=== PATIENT | female | born 1955 | race Caucasian/White ===

== ENCOUNTER 2017-07-21 08:30 | Outpatient (RCR) | payer MEDICAID, SELFPAY ==
--- NOTE | 2017-07-21 10:46 | BH.SGPN ---
Service Group Progress Note - Session Psychotherapy Session #1 Date Open:: 18 - 8 group members Time Started:: 09:05 Time Stopped:: 10:10 Targeted Problem #:: 1 Type of Group:: Process Goal of Group:: The goal of today's group was to check-in with clients and review homework from previous group session. Client Response/Progress/Benefit:: client responded well to session, active participant. Client reports feeling jittery today due to worrying about her future. Client shared she has been struggling with anxiety on and off throughout her life, but recently has been highly anxious for the last 2-3 weeks. Client stated her anxiety was triggered by changes in her role at work that lead to more physically demanding tasks which client could not perform. Client reported I decided my health was more important than work, but now client is anxious about finding new employment. Client shared she was looking forward to joining the group as she enjoys the support and hopes to learn how to cope with lives challenges. Client appeared to benefit from connecting with peers and receiving supportive comments. Limited progress, first day of IOP. Client to continue IOP to prevent decompensation and promote mood stability. Eye Contact:: Good Motor Activity:: Appropriate Appearance:: Neat Speech:: Soft Mood:: Anxious Affect:: Constricted Thoughts:: Linear, No evidence of hallucinations/delusions noted Staff Interventions:: Therapist inquired about each group member?s previous night and current mood state. Therapist reviewed the group member?s homework from previous group session with the group, asking open ended questions to get more information.
--- NOTE | 2017-07-21 11:40 | BH.NA ---
Physical Data - Height/Weight Height: 1.57 m Weight:: 61.235 kg Weight in Pounds: 135.0 lbs Current Medication Compliance - Medication Compliance Do you take your medication as prescribed?: Yes Do you need assistance with taking medication?: No Have you had side effects from medication?: No Nutritional History - Appetite Nutritional Instructions:: If client shows signs of a swallowing problem, weight change of 10 pounds or more in the last month, or is on a diabetic diet, the physician will review and request a dietitian consult, as appropriate. All unintentional weight loss will be referred to the physician for decision on need for dietitian consult. Describe your appetite:: Good, Poor Have you noticed a change in your eating habits lately?: Yes - decreased w/ 5-10# wt loss Functional Assessment - Sleep Pattern Describe any problems with sleeping: Endorses difficulty staying asleep d/t anxiety, only sleep 4-5 hours nightly. - Activities Motor Activity:: Functional Sensory/Communication Assess - Hearing Problems Do you have any hearing problems?: Adequate - Communication Problems Do you have difficulty understanding what people are saying?: No Do you have trouble putting your thoughts into words or expressing what you want to say?: No Do people ever have trouble understanding what you say?: No What is your primary language?: Cymraes Learning Assessment - Learning Barriers Learning Barriers:: Ready to learn Medical Problems/History - Pain Assessment Do you have acute or chronic pain?: No - Female Reproductive Do you think you may be ?: No Number of pregnancies:: 0 Number of children:: 0 Substance Abuse - Substance Abuse Please describe substance abuse in the last 30 days:: Rare ETOH and caffiene use. Denies present or past tobacco and illicit substance use. Mental Status Summary - Mental Status Significant Findings/Observations on Appearance and Mood:: A&O x4, cooperative with interview, and makes normal eye contact. Nor Suicide Assessment - Suicidal Ideation Are you currently or have you been suicidal in the past?: Yes Suicidal Intentional Rating Scale (SIRS): Suicidal thoughts (past) - passive thoughts of w/o overt SI (no plan or intent) Physician Notification: If Active suicidal thoughts/Will not contract for safety is checked, contact physician and document in the Physician Notification section below. Assault History/Potential - History of Assault Do you have a history of assaulting someone?: No Physician Notification: If yes, notify physician and document notification date and time below. Past Psychiatric History - MH Treatment Hx Age of first mental health symptoms: 54 years old - approx 8 years age Fall Risk Assessment - Age Age: 60-70 - Mental Status Mental Status: Willing & able to ask for assistance when needed - Physical Status Physical Status: No problems - Impairments Impairments: None - Elimination Elimination: Continent AND independent - Gait or Balance Gait or Balance: Walks independently - Hx of Falls History of falls in the past 6 months: No known history - Medications/Substances Psychotropics:: Antidepressants Medications/substances used within the past 24 hours or ordered to administer: 1-2 of the medications/substances listed above - Total Score Total Points:: 2 RN Summary of Impressions - Impressions Recommendations: Include psychiatric and medical issues, treatment planning recommendations, and discharge planning needs. Impression: General Medical Conditions: N/A - Level of Care How do the client's current symptoms and functional deficits support need for this level of care?: Client describes worsening mental health symptoms over the past 3 weeks, which she associates with an increase in physical expectations at work. She is feeling overwhelmed by her anxiety, has had a decline in her ADL performance, and has been having passive thoughts of to escape. She specifically denies SI, plan, or intent to harm herself, but notes it would be easier for everyone if I didn't wake up one day. She has been having frequent panic attacks during which she feels tachycardic, disassociates from herself, and is unable to focus or concentrate. Shireen is able to identify her sister and some friends from [employer] as her support system, and is willing to reach out to them when feeling overwhelmed. IOP will promote gains and provide socialization while preventing further decompensation.
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
--- NOTE | 2017-07-21 14:20 | BH.DR.ITP ---
Initial Treatment Plan - Patient Information Visit Information: ADMISSION DATE: EXPECTED LOS: 4-6 weeks Diagnoses:: Generalized anxiety disorder. PTSD - Problems/Symptoms Problem #1:: Depression Symptom:: Sad mood, anhedonia, decreased energy, difficulty concentrating, biologic disruption of sleep and appetite Problem #2:: Anxiety Symptom:: Rumination, panic, intrusive traumatic memories
--- NOTE | 2017-07-25 11:06 | BH.SGPN ---
Service Group Progress Note - Session Psychotherapy Session #1 Date Open:: 07/25/17 Time Started:: 09:10 Time Stopped:: 10:05 Targeted Problem #:: 1 Type of Group:: Process Goal of Group:: The goal of today's group was to check-in with client's mood, stressors, and positives, review homework and introduce topic for the day. Client Response/Progress/Benefit:: Reported the weekend was tough for her because she is living alone and did not have anything due over the long weekend. Client shared she is having a hard time adjusting to not having a job right now since having to quit due to physical limitations. Client reported she is not feeling ready to start applying and interviewing for a new job until she feels more mentally healthy. Client shared she did spend some time with a friend on Monday and got outside throughout the weekend which was positive. Client identified not having a structure or routine as one of the biggest problems currently becuase that is what work provided for her. Client seemed to benefit from support from peers. Client to continue IOP to prevent decompensation and decrease depressive and isolation. Eye Contact:: Fair Motor Activity:: Appropriate Appearance:: Casual Speech:: Appropriate Mood:: Anxious, Depressed Affect:: Constricted Thoughts:: Linear, Logical, No evidence of hallucinations/delusions noted Staff Interventions:: Therapist used open-ended questions to elicit information about client's current stressors and mood state. Therapist was supportive by using active listening and reflection.
--- NOTE | 2017-07-25 12:15 | BH.MTP_ITS ---
Master Treatment Plan - Patient Information Program Physician:: Juliet Pineda Primary Therapist:: Yvette Aguilar - Psychiatric Diagnoses Psychiatric Diagnoses:: generalized anxiety disorder; PTSD; Depressive disorder unspecified Diagnosis Code(s):: F41.1 - Estimated LOS Estimated LOS (in weeks):: 6 Problem/Goal #1 - Problem/Goal #1 Stated Goal:: Client will reduce depressive symptoms and anhedonia while increasing her social supports and energy. Description of Barriers: Client identifies family as a support, but also a barrier as it reminds client of her loneliness. Client reports wanting to return to work, but currently being unable to due to anxiety. Client reports high expectation of herself which could serve as a positive, but may also create unrealistic expectations for progress. Client could benefit from psychoeducation on the purpose of emotions as client reports struggling with accepting negative emotions, and often judges herself for feeling anything but happy. Functional Impact: At admission, client reported anxiety and depression since 2010 and has had 3-4 intermittent episodes of anxiety and depression since then. Client?s anxiety recently became worse 3 weeks ago due to loneliness and recently quitting her job. Client endorsed a depressed mood, anhedonia, decreased energy, and difficulty concentrating. Client also reported decreased appetite with a 5-pound weight loss in the past 3 weeks. Client states having interrupted sleep, averaging 5 hours a night. Client reported ruminative anxiety about multiple issues and experiences somatic symptoms such as heart palpitation, shortness of breath, and dissociative symptoms. Client shared feeling anxious every day for most of the day, especially in the mornings. At admission client reported her symptoms are interfering with her ability to function socially and professionally. Goal Relevant Strengths/Supports: Client is kind, insightful, and hard working. Client reports having strong arline which client shares helps her overcome challenging times in life. Client is engaged in treatment and appears motivated to incorporate coping skills learned in group. Client shared belief she is persistent and hopeful that things will get better for her. - Objectives Objective #1 Stated Objective: Client will identify and replace 3-4 negative self-talk messages that reinforce depressive symptoms. Interventions: Therapist will help client identify distorted, negative beliefs about self and world and replace those messages with positive, affirmative messages. Therapist will provide psychoeducation and help client increase awareness of warning signs and triggers. Discharge Criteria: Client will have achieved this goal when can identify at least 3 negative self-talk messages and replace those messages with positive, affirmative messages. Target Date: 09/01/17 Review Date: 08/21/17 Status: open Objective #2 Stated Objective: Client will increase social activity to at least one additional activity weekly to improve mood and promote sense of accomplishment. Interventions: Therapist will assist client in identifying social activities of interest, supports, and tasks that promote a sense of accomplishment. Therapist will help client identify the benefits of engaging in these activities and help client create a daily routine. Discharge Criteria: Client will have achieved this objective when can report attending at least one extra social activity peer week. Target Date: 09/01/17 Review Date: 08/21/17 Status: open Problem/Goal #2 - Problem/Goal #2 Stated Goal:: Reduce overall frequency, intensity, and duration of the anxiety so that daily functioning is not impaired. Description of Barriers: Client identifies family as a support, but also a barrier as it reminds client of her loneliness. Client reports wanting to return to work, but currently being unable to due to anxiety. Client reports high expectation of herself which could serve as a positive, but may also create unrealistic expectations for progress. Client could benefit from psychoeducation on the purpose of emotions as client reports struggling with accepting negative emotions, and often judges herself for feeling anything but happy. Functional Impact: At admission, client reported anxiety and depression since 2010 and has had 3-4 intermittent episodes of anxiety and depression since then. Client?s anxiety recently became worse 3 weeks ago due to loneliness and recently quitting her job. Client endorsed a depressed mood, anhedonia, decreased energy, and difficulty concentrating. Client also reported decreased appetite with a 5-pound weight loss in the past 3 weeks. Client states having interrupted sleep, averaging 5 hours a night. Client reported ruminative anxiety about multiple issues and experiences somatic symptoms such as heart palpitation, shortness of breath, and dissociative symptoms. Client shared feeling anxious every day for most of the day, especially in the mornings. At admission client reported her symptoms are interfering with her ability to function socially and professionally. Goal Relevant Strengths/Supports: Client is kind, insightful, and hard working. Client reports having strong arline which client shares helps her overcome challenging times in life. Client is engaged in treatment and appears motivated to incorporate coping skills learned in group. Client shared belief she is persistent and hopeful that things will get better for her. - Objectives Objective #1 Stated Objective: Client will identify 2-3 anxiety triggers and warning signs and 2 coping skills to use when feeling anxious. Interventions: Therapist will assist client in exploring what triggers anxiety and the various areas anxiety impacts, such as cognitive, physical, behavioral, and emotional. Therapist will teach client coping strategies to effectively manage anxiety symptoms. Discharge Criteria: Client will have met this goal when can identify at least 2 triggers to anxiety and verbalize two healthy ways to cope with feelings of anxiety. Target Date: 09/01/17 Review Date: 08/21/17 Status: open Objective #2 Stated Objective: Client will learn and implement 2-3 calming skills to reduce overall anxiety, panic, and ruminations. Interventions: Therapist will teach client calming/relaxation skills and assign client homework which practices relaxation skills daily. Therapist will utilize various mindfulness techniques and also help client recognize early warning signs to prevent panic and manage anxiety. Discharge Criteria: Client will have achieved this goal when can verbalize at least 2 calming skills and report implementation those skills. Target Date: 09/01/17 Review Date: 08/21/17 Status: open
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
--- NOTE | 2017-07-25 14:43 | BH.MDN ---
Multi-Disciplinary Note - Note 45-min Individual Time Started:: 12:30 Date: 07/25/17 Purpose of session/treatment goals addressed:: The purpose of this session was to gather information on client's current symptoms, stressors, and supports. Another goal was to identify treatment goals, learn calming coping skills, and establish a daily routine for client. Eye Contact:: Good Motor Activity:: Appropriate Appearance:: Neat Speech:: Appropriate Mood:: Euthymic Affect:: Congruent Thoughts:: Linear, Logical, No evidence of hallucinations/delusions noted Staff Interventions:: Therapist used open-ended questions to gather information on client's current symptoms, stressors, supports, and treatment goals. Therapist explored client's interests, daily tasks, supports, and hobbies to help client create a daily routine that will promote client's emotional well-being. Therapist taught client deep breathing strategies and grounding techniques to reduce anxiety. Therapist explored client's treatment goals and used strengths perspective to empower client. Client Response:: Client responded well to session, open to meeting with therapist. Client shared she would like to work on coping with life challenges, loneliness, anxiety, and finding employment. Client shared she has been experiencing panic attacks and anxiety, triggered by client recently quitting her job, which has been impacting client's emotional well-being and ability to go on job interviews. Client stated she also struggles with loneliness as client has supports in her life, but they all have families to go home to. Client was receptive to establishing a daily schedule, reporting it would reduce depression and anxiety. Client identified interests she would like to get back into such as gardening, weeding flower beds, scrapbooking, and volunteering. Client reported she would like to volunteer at a food pantry and was open to considering food pantries in [facility]. Client and therapist established a schedule for this week that included a combination of chores, pleasurable activities, and engagement with supports. Client was receptive to learning calming coping skills for anxiety, as client shared her anxiety keeps her from doing things and that she often experiences somatic symptoms like racing heartrate and shortness of breath. Client and therapist reviewed various grounding and deep breathing strategies. Client stated she enjoyed figure-eight breathing and the 5-senses. Client and therapist discussed the benefits of scheduling a time to practice healthy coping skills as well. Client reports plan to use her daily routine and practice at least one healthy coping skill a day. Risks/Concerns:: Client denies suicidal ideation, plan, and intent as of 07/25/17. Client reports looking forward to going to the library and meeting with her nondenominational group this week which demonstrates future orientation. Progress Toward Goals/Plan:: Client showing limited progress as today was her second day in IOP. However, client appears motivated in her treatment process as shown by her willingness to implement a daily routine and try coping skills. Client to continue IOP to promote mood stability and prevent decompensation. Time Stopped:: 13:17
--- NOTE | 2017-07-25 15:16 | BH.MDN_ITS ---
Multi-Disciplinary Note - Note 45-min Individual Time Started:: 12:30 Date: 07/25/17 Purpose of session/treatment goals addressed:: The purpose of this session was to gather information on client's current symptoms, stressors, and supports. Another goal was to identify treatment goals, learn calming coping skills, and establish a daily routine for client. Eye Contact:: Good Motor Activity:: Appropriate Appearance:: Neat Speech:: Appropriate Mood:: Euthymic Affect:: Congruent Thoughts:: Linear, Logical, No evidence of hallucinations/delusions noted Staff Interventions:: Therapist used open-ended questions to gather information on client's current symptoms, stressors, supports, and treatment goals. Therapist explored client's interests, daily tasks, supports, and hobbies to help client create a daily routine that will promote client's emotional well- being. Therapist taught client deep breathing strategies and grounding techniques to reduce anxiety. Therapist explored client's treatment goals and used strengths perspective to empower client. Client Response:: Client responded well to session, open to meeting with therapist. Client shared she would like to work on coping with life challenges, loneliness, anxiety, and finding employment. Client shared she has been experiencing panic attacks and anxiety, triggered by client recently quitting her job, which has been impacting client's emotional well-being and ability to go on job interviews. Client stated she also struggles with loneliness as client has supports in her life, but they all have families to go home to. Client was receptive to establishing a daily schedule, reporting it would reduce depression and anxiety. Client identified interests she would like to get back into such as gardening, weeding flower beds, scrapbooking, and volunteering. Client reported she would like to volunteer at a food pantry and was open to considering food pantries in [facility]. Client and therapist established a schedule for this week that included a combination of chores, pleasurable activities, and engagement with supports. Client was receptive to learning calming coping skills for anxiety, as client shared her anxiety keeps her from doing things and that she often experiences somatic symptoms like racing heartrate and shortness of breath. Client and therapist reviewed various grounding and deep breathing strategies. Client stated she enjoyed figure-eight breathing and the 5-senses. Client and therapist discussed the benefits of scheduling a time to practice healthy coping skills as well. Client reports plan to use her daily routine and practice at least one healthy coping skill a day. Risks/Concerns:: Client denies suicidal ideation, plan, and intent as of . Client reports looking forward to going to the library and meeting with her [employer] group this week which demonstrates future orientation. Progress Toward Goals/Plan:: Client showing limited progress as today was her second day in IOP. However, client appears motivated in her treatment process as shown by her willingness to implement a daily routine and try coping skills. Client to continue IOP to promote mood stability and prevent decompensation. Time Stopped:: 13:17
--- NOTE | 2017-07-25 16:07 | BH.SGPN_ITS ---
Service Group Progress Note - Session Psychotherapy Session #2 Date Open:: 07/25/17 Time Started:: 10:19 Time Stopped:: 11:14 Targeted Problem #:: 1 Type of Group:: Illness Management - 6 participants Goal of Group:: To increase understanding of a crisis and improve client?s awareness of personal warning signs before crisis. Client Response/Progress/Benefit:: Client responded well to session and actively participated in both the discussion and activity portions. Client discussed with the group what crisis means and ways in which small things can contribute to crisis escalation. Client shared that she often tries to run from crisis as she gets afraid of dealing with the aftermath. Client benefitted from processing potential impacts crisis can have on mental health and resilience. She shared with the group what crisis looks like to her. She discussed having a serious of highs and lows rather than one big high or low. CLient indicated when I don't pay attention the the warning signs everything just gets much worse. Client recommended continued IOP to further repetiore of healthy coping strategies and stress management techniques. Eye Contact:: Good Motor Activity:: Appropriate Appearance:: Casual Speech:: Appropriate Mood:: Euthymic, Anxious Affect:: Congruent Thoughts:: Linear, Logical, No evidence of hallucinations/delusions noted Staff Interventions:: Therapist facilitated group discussion about defining a crisis and specifying various events that are considered a crisis. Therapist led the group in discussion about identifying personal warning signs before a crisis and importance of being aware of those signs. Therapist provided support by using active listening and providing feedback. Psychotherapy Session #3 Date Open:: 07/25/17 Time Started:: 11:21 Time Stopped:: 12:18 Targeted Problem #:: 1 Type of Group:: Functional Skills Development - 6 participants Goal of Group:: To increase awareness of warning signs before a crisis and identify interventions/coping strategies that would help clients proactively manage potential crises. Client Response/Progress/Benefit:: Client again did well to remain engaged throughout. She connected with the discussion reviewing the importance of recognizing crisis warning signs and identified isolation and decreased appetite as two of her personal warning signs for crisis. CLient benefitted from the crisis kit activity in which clients created asmall bag containing reminders of healthy skills they have found effective in the past or would like to try, as well as encouraging words. CLient indicated that being creative and spending time with her niece are to things that tend to help. Recommended continued IOP to increase use of healthy skills identified and ability to challenge unhelpful thinking patterns. Eye Contact:: Good Motor Activity:: Appropriate Appearance:: Casual Speech:: Appropriate Mood:: Euthymic, Anxious Affect:: Congruent Thoughts:: Linear, Logical, No evidence of hallucinations/delusions noted Staff Interventions:: Therapist led the group in discussion about identifying personal warning signs before a crisis and importance of being aware of those signs. Therapist provided the group with various types of items and asked each group member to select five items that represent something that would be helpful in managing their warning signs of a crisis. Therapist facilitated group processing of the crisis emergency kits each group member created. Therapist used open-ended questions to encourage elaboration of each item chosen for their kit. Therapist helped clients connect how the crisis emergency kit could help be a crisis prevention tool.
--- NOTE | 2017-07-26 15:04 | BH.SGPN ---
Service Group Progress Note - Session Psychotherapy Session #2 Date Open:: 07/26/17 - 10 group members Time Started:: 10:20 Time Stopped:: 11:15 Targeted Problem #:: 1 Type of Group:: Illness Management Goal of Group:: To increase understanding of resilience and identify the factors that contribute to building resilience. Client Response/Progress/Benefit:: client responded well to session, providing good insight to discussion. Client connected with the quote sharing, if you are flexible it makes the hard times easier to get over. Client shared resilience is bouncing back from challenges, even when life is chaos. Client helped the group identify factors that contribute to building resilience such as hope and optimism and moving towards goals. Client shared acceptance is also important for increasing resilience and that client often uses the serenity prayer as a reminder of what is in client's control. Client appeared to benefit from increasing her understanding of resilience. Progress noted in client's improved outlook use of coping skills, but can continue to benefit from IOP to reduce anxiety. Eye Contact:: Good Motor Activity:: Appropriate Appearance:: Neat Speech:: Pressured Mood:: Anxious Affect:: Congruent Thoughts:: Linear, Logical, No evidence of hallucinations/delusions noted Staff Interventions:: Therapist led group in an activity that would induce a chaotic environment and used the activity as a tool in discussing the various stressors people are faced with each day. Therapist facilitated group discussion about resilience and explained the factors of building resilience. Therapist led discussion about factors that contribute to resilience. Therapist provided support by using active listening and providing feedback. Psychotherapy Session #3 Date Open:: 07/26/17 - 9 group members Time Started:: 11:25 Time Stopped:: 12:15 Targeted Problem #:: 1 Type of Group:: Functional Skills Development Goal of Group:: To rehearse resilient factors and identify ways to maintain resilience despite hardships and stressors. Client Response/Progress/Benefit:: Client responded well to session, providing supportive statements to peers. Client identified personal resilience traits such being hopeful, having perseverance, and remind herself I'll get through this. Client shared these are good reminders because when client is having a down day or feeling highly anxious she can look at them and feel more confident. Client appeared to benefit from increasing awareness of her personal resilience factors. Client to continue IOP to promote mood stability. Eye Contact:: Good Motor Activity:: Appropriate Appearance:: Neat Speech:: Appropriate Mood:: Euthymic Affect:: Congruent Thoughts:: Linear, Logical Staff Interventions:: Therapist led group in an activity in which group members were challenged to stay resilient despite various stressors and hardships added to activity. Therapist provided each group member with a stress ball and used stress ball as a tool to discuss factors of resilient personality. Therapist provided group members with a handout about the building blocks of resilience. Therapist provided support by using reflective listening.
--- NOTE | 2017-07-26 15:32 | BH.SGPN ---
Service Group Progress Note - Session Psychotherapy Session #1 Date Open:: 07/26/17 Time Started:: 09:10 Time Stopped:: 10:10 Targeted Problem #:: 1 Type of Group:: Process - 10 group members Goal of Group:: The goal of today's group was to check-in with client's mood, stressors, and positives, review homework and introduce topic for the day. Client Response/Progress/Benefit:: Client attentively listened to others, elicited thoughts from peers, and openly expressed and thoughts and emotions. Client reported she experiences different moods throughout the day. client shared for a little bit she will be feeling okay then be depressed or anxious, etc. Client expressed frustration with not seeing progress, reporting she thought she'd be better by now. Client continues to have unrealistic expectations of being better after a short time of starting to implement new skills. Client did seem to benefit from connecting with others on their experience of roller coaster moods. Eye Contact:: Fair Motor Activity:: Restless Appearance:: Casual Speech:: Appropriate Mood:: Anxious, Depressed Affect:: Constricted Thoughts:: Linear, No evidence of hallucinations/delusions noted Staff Interventions:: Therapist used open-ended questions to elicit information about client's current stressors and mood state. Therapist was supportive by using active listening and reflection.
--- NOTE | 2017-07-27 10:43 | BH.SGPN_ITS ---
Service Group Progress Note - Session Psychotherapy Session #1 Date Open:: 18 - 6 group members Time Started:: 09:05 Time Stopped:: 10:20 Targeted Problem #:: 1 Type of Group:: Process Goal of Group:: The goal of today's group was to check-in with client's mood, stressors, and positives, and introduce topic for the day. Client Response/Progress/Benefit:: Client responded well to session, engaging with others and providing insight. Client reports feeling hopeful today as she has started noticing small improvements in her outlook and mood. Client shared mornings continue to be hardest for her, but she has been using the phrase I will be okay to remind herself that the difficult times, anxiety, and depression do not last forever. Client stated she continues to have ups and downs, however, they do not last as long due to client using positive self- talk and other coping skills. Client reported she wants to get back to work and at times feels overwhelmed, but she has been telling herself one day at a time. Client appeared to benefit from reflecting on the positive ways she is coping with her ups and downs. Progress noted as shown by client's ability to challenge negative thoughts and unrealistic expectations. Client can continue to benefit from improving social support and increasing mood stability. Eye Contact:: Good Motor Activity:: Appropriate Appearance:: Neat Speech:: Appropriate Mood:: Euthymic Affect:: Congruent Thoughts:: Linear, Logical, No evidence of hallucinations/delusions noted Staff Interventions:: Therapist used open-ended questions to elicit information about client's current stressors and mood state. Therapist was supportive by using active listening and reflection.
--- NOTE | 2017-07-27 14:13 | BH.SGPN_ITS ---
Service Group Progress Note - Session Psychotherapy Session #2 Date Open:: 07/27/17 Time Started:: 10:24 Time Stopped:: 11:14 Targeted Problem #:: 1 Type of Group:: Illness Management - 7 participants Goal of Group:: To increase understanding of fear and explore the negative impact fear of failure can have on mental health and decision making. Client Response/Progress/Benefit:: Client responded well to session and willing to engage throughout. She appeared nervous at first and took on a mostly passive, observant role during discussing covering failure and the impact our outlook has on mental health. Client benefitted from the activity portion in which group members were challenged to complete a gridlock activity allowing for participants to encounter various potential failures. Client was able to work with the group to discover various strategies for preventing and managing failure. She displayed progress in her abilit to open up and engage wih the group. CLient recommended continued IOP to maintain stability and work on developing healthy skills for managing symptoms of depression. Eye Contact:: Good Motor Activity:: Appropriate Appearance:: Casual Speech:: Appropriate Mood:: Anxious, Dysthymic Affect:: Congruent Thoughts:: Linear, Logical, No evidence of hallucinations/delusions noted Staff Interventions:: Therapist facilitated discussion about fear and impact fear of failure can have. Therapist led group in an experiential activity in which client?s would fail numerous times throughout, but were given the opportunity to try again. Therapist led the processing of the activity and assisted clients with connecting how fear of failure impacted their decision making during the activity. Psychotherapy Session #3 Date Open:: 07/27/17 Time Started:: 11:21 Time Stopped:: 12:17 Targeted Problem #:: 1 Type of Group:: Functional Skills Development - 7 participants Goal of Group:: To identify the impact fear of failure has had on the group members lives and identify strategies to overcome fear of failure. Client Response/Progress/Benefit:: Client displayed increased participation and engagement in group compared to previous session. She was an actively engaged participant in the activity portion and did well to process this with the group. CLient identified ways in which the activity can be associated to managing fear of failure in personal life. CLient benefitted from brainstorming ideas for coping with fear of failure such as beaking things down into smaller steps. CLient displayed progress in her ability to relate treament concepts to daily life. CLient continues to struggle with patience regarding treatment progress. Recommended continued IOP to maintain stabilty and increase use of healthy skills for managing symptoms of depression. Eye Contact:: Good Motor Activity:: Appropriate Appearance:: Casual Speech:: Appropriate Mood:: Anxious, Dysthymic Affect:: Congruent Thoughts:: Linear, Logical, No evidence of hallucinations/delusions noted Staff Interventions:: Therapist provided each group member with a worksheet to complete that asked questions about their experiences with fear of failure. Therapist led the processing of the worksheet, helping client?s connect how fear of failure has impacted them. Therapist provided support by using active listening and providing feedback.
== END 2017-07-27 23:59 ==
LOC: BHIOP 08:30
PROVIDERS: Visit Provider Psychiatry & Neurology Psychiatry
DX: F41.1 Generalized anxiety disorder (principal); F43.10 Post-traumatic stress disorder, unspecified; F32.9 Major depressive disorder, single episode, unspecified; Z79.899 Other long term (current) drug therapy
CPT/HCPCS: 99204; H0035; H2012; H2020; T1002; 90834

== ENCOUNTER → 2017-07-21 13:38 | Outpatient (CLI) | payer MEDICAID, SELFPAY ==
[2017-07-21 16:07] LABS: Thyroid Stim Hormone (TSH) 1.06 uIU/mL (0.358-3.74); Vitamin D,25 Hydroxy 36.6 ng/mL (29.95-100.01)
== END ==
PROVIDERS: PCP Family Medicine; Visit Provider Psychiatry & Neurology Psychiatry
DX: E55.9 Vitamin D deficiency, unspecified (principal); Z79.899 Other long term (current) drug therapy
CPT/HCPCS: 36415; 82306; 84443; 99204; H2012; T1002

== ENCOUNTER 2017-07-28 08:49 | Outpatient (RCR) | payer MEDICAID, SELFPAY ==
--- NOTE | 2017-07-28 14:28 | BH.SGPN_ITS ---
Service Group Progress Note - Session Psychotherapy Session #2 Date Open:: 07/28/17 - 8 group members Time Started:: 10:10 Time Stopped:: 11:00 Targeted Problem #:: 1 Type of Group:: Illness Management Goal of Group:: To increase understanding of what stress is, identify current life stressors, and connect impact stressors have on mental health. Client Response/Progress/Benefit:: Client responded well to session, active participant. Client connected with quote sharing how we think about something makes it better or worse. Client shared stress impacts the body emotionally, physically, and behaviorally. Client when she experiences stress she feels butterflies, confused, and overwhelmed. Client identified her current stressors as not having a job and having too much free time. Client stated her stress jar is not yet overflowing, but when it does client becomes overwhelmed, has panic attacks, and feels like she is losing control. Client appeared to benefit from increasing awareness of how stress impacts her mental wellness. Progress noted in client's improved insight and generalization of coping skills, but can continue to benefit from reducing anxiety and mental health education Eye Contact:: Good Motor Activity:: Appropriate Appearance:: Neat Speech:: Appropriate Mood:: Depressed Affect:: Constricted Thoughts:: Linear, Logical, No evidence of hallucinations/delusions noted Staff Interventions:: Therapist facilitated discussion about stress. Therapist facilitated an activity in which group members were asked to identify various stressors they have in their life currently. Therapist instructed group members to indicate if certain stressors were larger than others. Therapist led processing of each member?s stress jar and helped them connect impact the stress has on their mental health. Psychotherapy Session #3 Date Open:: 07/28/17 - 7 group members Time Started:: 11:10 Time Stopped:: 12:00 Targeted Problem #:: 1 Type of Group:: Functional Skills Development Goal of Group:: To identify what stressors clients have control over and what stressors have no control over. Another goal was to increase repertoire of healthy strategies to help manage stress. Client Response/Progress/Benefit:: Client responded well to session, engaging well with peers. Client stated the activity helped her recognize the importance of communication and using supports when working to reduce stress. Client shared managing her free time is in her control as client can find ways to establish a routine. Client helped the group identify strategies to reduce stress such as reminding herself of progress, taking one stressor on at a time, and reaching out to supports. Client appeared to benefit from identifying strategies to reduce stress. Client to continue IOP to reduce anxiety and improve functioning. Eye Contact:: Good Motor Activity:: Appropriate Appearance:: Neat Speech:: Appropriate Mood:: Euthymic Affect:: Full Thoughts:: Linear, Logical, No evidence of hallucinations/delusions noted Staff Interventions:: Therapist facilitated discussion about control versus no control and helped group members connect the concept to stressors. Therapist led discussion about importance of putting forth more energy on those stressors they can control. Therapist led group activity that provided participants opportunity to utilize stress management strategies in the moment. Therapist facilitated brainstorming of strategies to help manage stress level. Therapist provided support by using active listening and providing feedback.
--- NOTE | 2017-07-28 15:32 | BH.SGPN ---
Service Group Progress Note - Session Psychotherapy Session #1 Date Open:: 07/28/17 Time Started:: 09:08 Time Stopped:: 09:59 Targeted Problem #:: 1 Type of Group:: Process Goal of Group:: The goal of today's group was to check-in with client's mood, stressors, and positives, review homework and introduce topic for the day. Client Response/Progress/Benefit:: Client reported she had a difficult time this morning increasing anxiety when she woke up. Client reported feeling disappointed because she thought she have more progress with decreased symptomology by this point. Client reported she felt her morning routine and took a walk this morning but did not notice a significant decrease in her anxiety after. Client seemed benefit from supportive comments made by peers as well as expressing thoughts and emotions. Client's high expectations of self could become a barrier to treatment progress because she expects to be better in a very short amount of time. continuing IOP necessary to prevent decompensation, decreasing anxiety and stabilize mood. Eye Contact:: Fair Motor Activity:: Restless Appearance:: Casual Speech:: Appropriate Mood:: Anxious Affect:: Constricted Thoughts:: Linear, Logical, No evidence of hallucinations/delusions noted Staff Interventions:: Therapist used open-ended questions to elicit information about client's current stressors and mood state. Therapist was supportive by using active listening and reflection.
--- NOTE | 2017-07-31 15:10 | BH.SGPN ---
Service Group Progress Note - Session Psychotherapy Session #1 Date Open:: 07/31/17 Time Started:: 09:07 Time Stopped:: 10:20 Targeted Problem #:: 1 Type of Group:: Process - 9 participants Goal of Group:: The goal of today's group was to check-in with clients and review homework from previous group session. Client Response/Progress/Benefit:: Client receptive to participating in group and openly discussed current thoughts, feelings, and stressors. She provided support and encouragement to fellow participants and appeared t benefit from having a shared space to process with others struggling with similar issues. Client expressed that although she is continuing to struggle with managing some of her depressive symptoms at times, she was able to make some progress over the weekend which has resulted in some increased levels of optimism. Client shared taking the step to talk to someone about volunteering with a local organization in her hometown called [employer] and [employer]. She reflected that although she had been nervous about doing so, the conversation went much more smoothly than she had expected, Client discussed that breaking things down into small goals has been helpful for dealing with feeling overwhelmed. Client benefitted from reflecting upon areas of achievement and is making progress in her ability to combat negative thinking. Recommended continued IOP to further improve use of skills learned as well as maintain stability. Eye Contact:: Good Motor Activity:: Appropriate Appearance:: Casual Speech:: Appropriate Mood:: Euthymic Affect:: Congruent Thoughts:: Linear, No evidence of hallucinations/delusions noted Staff Interventions:: Therapist facilitated the group session by asking open ended questions that encouraged group members to discuss their weekend and current mood state. Assisted group members in the review of their homework from previous group session.
--- NOTE | 2017-07-31 15:29 | BH.SGPN ---
Service Group Progress Note - Session Psychotherapy Session #2 Date Open:: 07/31/17 Time Started:: 10:25 Time Stopped:: 11:15 Targeted Problem #:: 1 Type of Group:: Illness Management Goal of Group:: To increase understanding of pitfalls and impact can have on mental health. Client Response/Progress/Benefit:: Client active participant, listened attentively to others and contributed to discussion. Client shared she is starting to recognize it takes time for things to get better and she can see progress in herself, which she wasnt able to see last week. Client worked cooperatively with peers during team challenge activity, identified importance of communication as a skill in helping one avoid falling in personal pitfalls. Client seemed to benefit from increasing understanding of how personal pitfalls can impact progress. Eye Contact:: Fair Motor Activity:: Appropriate Appearance:: Casual Speech:: Appropriate Mood:: Dysthymic Affect:: Constricted Thoughts:: Linear, Logical, No evidence of hallucinations/delusions noted Staff Interventions:: Therapist facilitated discussion about pitfalls and assisted group in identifying common pitfalls that can set you back. Therapist led group in an activity to help group understand impact pitfalls can have on oneself and identify strategies that could help you get back on the right path. Therapist provided support by using active listening and providing feedback. Psychotherapy Session #3 Date Open:: 07/31/17 Time Started:: 11:25 Time Stopped:: 12:15 Targeted Problem #:: 1 Type of Group:: Functional Skills Development Goal of Group:: To identify personal pitfalls and what keeps them stuck from moving forward. Client Response/Progress/Benefit:: Client listened attentively to others and shared her thoughts and ideas with group. Client reported she had a hard time identifying her personal pitfalls because she doesnt like to think about the negatives. Client did identify comparting self to others and not seeing progress as two of her biggest personal pitfalls. Client reported she is willing to recognize she has made progress by thinking back to where she was when she started IOP. Client seemed to benefit from identifying a small goal for the day. Client progress could be hindered if client continues to avoid identifying and facing the issues that could be keeping her stuck. Eye Contact:: Good Motor Activity:: Appropriate Appearance:: Casual Speech:: Appropriate Mood:: Dysthymic Affect:: Constricted Thoughts:: Linear, Logical, No evidence of hallucinations/delusions noted Staff Interventions:: Therapist facilitated activity in which group members were given the task to identify personal pitfalls and what keeps them stuck from moving past the pitfall. Therapist provided group members with the homework assignment of identifying strategies that can help them overcome pitfalls.
--- NOTE | 2017-07-31 16:00 | BH.MDN ---
Multi-Disciplinary Note - Note 45-min Individual Time Started:: 12:40 Date: 07/31/17 Purpose of session/treatment goals addressed:: The purpose of this session was to address client's current symptoms, stressors, and expectations for progress. Another goal was to challenge cognitive distortions, establish realistic expectations and set weekly goals. Eye Contact:: Good Motor Activity:: Appropriate Appearance:: Neat Speech:: Appropriate Mood:: Euthymic Affect:: Congruent Thoughts:: Linear, No evidence of hallucinations/delusions noted Staff Interventions:: Therapist used open-ended questions to explore client's current stressors, symptoms, and expectations for treatment. Therapist helped client challenge unrealistic expectations and cognitive distortions that keep client from acknowledging progress. Therapist processed negative maintenance cycles with client and taught client ways to break the cycle. Therapist helped client establish weekly expectations and praised client on her weekend accomplishments. Client Response:: Client responded well to session, engaged throughout. Client reported she continues to struggle with ups and downs throughout the day, and recognizes that she may be too hard on herself. Client stated she has negative thoughts of I should be better by now which with therapist elicitation, recognizes as unrealistic. Client and therapist processed the cognitive distortions and how shoulding can keep client stuck in a negative maintenance cycle, lead to unhealthy self-comparison, and prevent client from seeing the progress. Client reported progress from the weekend sharing she faced her fears and went into her previous place of employment and asked to be a volunteer. Client also reached out to support and challenged negative thoughts. Client reported I felt really good after facing her. fears and challenging her anxious thoughts. Client stated she had negative, what if thoughts, but challenged them by saying it wouldn't hurt to try. Client identified her expectations for treatment and shared she recognizes she has been thinking unrealistically about how quickly anxiety will reduce. Client was receptive to establishing weekly expectations and reported this week she wants to challenge thoughts more, acknowledge small progress, and reduce anxiety a little bit. Risks/Concerns:: Client denies suicidal ideation, plan, and intent as of 07/31/17. Client reports plans to start volunteering which demonstrates future orientation. Progress Toward Goals/Plan:: Client making progress towards treatment goals as shown by her report of improved mood and plans to volunteer. Client continues to report highs and lows most days, with symptoms worse in the mornings. Client to continue IOP to prevent decompensation and reduce anxiety. Time Stopped:: 13:30
--- NOTE | 2017-08-01 16:03 | BH.SGPN ---
Service Group Progress Note - Session Psychotherapy Session #1 Date Open:: 08/01/17 Time Started:: 09:07 Time Stopped:: 10:12 Targeted Problem #:: 1 Type of Group:: Process - 4 participants Goal of Group:: The goal of today's group was to check-in with clients and review homework from previous group session. Client Response/Progress/Benefit:: Client responded well to session and was a positive participant throughout. She was able to actively provide input to the group and encourage others as they discussed current frustrations or difficulties. Client discussed that not much has changed since yesterday but that she continues to struggle with remaining patient regarding wanting her mental health to back to where it used to be sooner. Client shared feeling most frustrated that she continues to experience ups and downs throughout the day,. She appeared to benefit from discussing with the group ways she is trying to challenge her negative thoughts during the down times as well as how she may benefit from beginning to track daily progress so she can she small ways in which her treatment is helping with managing mental health symptoms. Client showing progress in her ability to apply healthy skills in the moment but would benefit from continued IOP to increase consistency of skill application and prevent decompensation. Eye Contact:: Good Motor Activity:: Appropriate Appearance:: Casual Speech:: Appropriate Mood:: Depressed Affect:: Congruent Thoughts:: Linear, Logical, No evidence of hallucinations/delusions noted Staff Interventions:: Therapist facilitated the group session by asking open ended questions that encouraged group members to discuss their weekend and current mood state. Assisted group members in the review of their homework from previous group session.
--- NOTE | 2017-08-02 10:22 | BH.SGPN ---
Service Group Progress Note - Session Psychotherapy Session #1 Date Open:: 08/02/17 Time Started:: 09:10 Time Stopped:: 10:05 Type of Group:: Process - 7 group members Goal of Group:: The goal of today's group was to check-in with client's mood, stressors, and positives, and review homework. Client Response/Progress/Benefit:: Active participant in group discussion. Emotion for today is optimistic. Shared that she is having a hard time being patient with her mental health progress. Understands that it will take some time to see significant improvement, however is able to see small progress. States Im getting better reporting that her MH symptoms of anxiety, depression, and dissociation are not as severe. Reports being more hopeful and motivated in the AM. Discussed that during group yesterday she had a goal to visit with friends and family more. Reports that she actually stopped over her nieces house and ended up spending the afternoon with her. Able to see benefits of stepping outside of comfort zone. Progress noted AEB by pt report. Will continue in IOP to prevent decompensation, maintain gains, and increase daily functioning. Noted decrease in daily anxiety however continues to report depressive symptoms. Eye Contact:: Good Motor Activity:: Restless Appearance:: Disheveled Speech:: Appropriate Mood:: Anxious, Depressed Affect:: Congruent Thoughts:: Linear, Logical, No evidence of hallucinations/delusions noted Staff Interventions:: Therapist used open-ended questions to elicit information about client's current stressors and mood state. Therapist was supportive by using active listening and reflection
--- NOTE | 2017-08-02 17:20 | BH.SGPN ---
Service Group Progress Note - Session Psychotherapy Session #2 Date Open:: 08/02/17 group members Time Started:: 10:17 Time Stopped:: 11:12 Targeted Problem #:: 1 Type of Group:: Illness Management Goal of Group:: To identify within self what is keeping client trapped from achieving better quality of life. Client Response/Progress/Benefit:: Client responded well to session, participating in discussion. Client connected with the quote sharing [employer] built [employer] in the past. Client stated anxiety and depression can keep a person stuck. Client able to connect how one's negative thoughts can make her feel trapped as well. Client identified negative thoughts keeping her trapped as I'm not good enough and what if something bad happens. Client shared she does not like thinking about her negative thoughts, but with therapist elicitation, client realized having awareness of cognitive distortions helps client be proactive and not fall into thought traps. Client appeared to benefit from reflecting on thoughts keeping client from achieving mental wellness. Progress noted as client appears to have increased mental health awareness, but continues to struggle with negative self-talk and black and white thinking. Eye Contact:: Good Motor Activity:: Appropriate Appearance:: Disheveled Speech:: Appropriate Mood:: Depressed Affect:: Constricted Thoughts:: Linear, Logical, No evidence of hallucinations/delusions noted Staff Interventions:: Therapist facilitated discussion about what is keeping clients stuck from moving toward mental wellness. Therapist assisted clients in connecting how thoughts can contribute to keeping clients stuck. Therapist led discussion about barriers clients face from making changes to help one move forward. Therapist provided support by using active listening and giving feedback to others. Psychotherapy Session #3 Date Open:: 08/02/17 group members Time Started:: 11:25 Time Stopped:: 12:20 Targeted Problem #:: 1 Type of Group:: Functional Skills Development Goal of Group:: To identify what client can do to release self from those things that are trapping them to find more peace and quality in everyday life. Client Response/Progress/Benefit:: Client responded well to session, active group member. Client selected Im not good enough as the negative thought keeping her most trapped. Client shared this thought leads to feeling more depressed and not wanting to do things. Client stated the thought feels realistic, but she recognizes it is unrealistic. Client reframed her thought to I am good enough for somethings. Client stated the reframed thought would impact her behaviors and mood because client would feel better about herself and have increase self-confidence. Client shared todays group helped client value positive thoughts and remind herself that she good enough. Client also helped the group identify strategies to reframe negative thinking. Client appeared to benefit from learning various strategies to challenge negative thinking. Client to continue IOP to prevent decompensation and reduce depressive symptoms. Eye Contact:: Good Motor Activity:: Appropriate Appearance:: Disheveled Speech:: Appropriate Mood:: Depressed Affect:: Constricted Thoughts:: Linear, Logical, No evidence of hallucinations/delusions noted Staff Interventions:: Therapist used examples of maintenance cycles to help clients gain awareness of how negative thinking is keeping clients stuck. Therapist facilitated discussion about different strategies for challenging negative thoughts, assisting clients in connecting how the strategies could benefit them. Therapist provided clients with homework to focus on one thing that is keeping them stuck and identify small steps to start moving towards mental wellness.
--- NOTE | 2017-08-04 17:21 | BH.SGPN ---
Service Group Progress Note - Session Psychotherapy Session #2 Date Open:: 08/04/17 9 group members Time Started:: 10:30 Time Stopped:: 11:20 Targeted Problem #:: 1 Type of Group:: Illness Management Goal of Group:: The goal of this session was to increase self-awareness of what is holding them back from moving towards mental wellness and discuss importance of taking action in their treatment. Client Response/Progress/Benefit:: Client responded well to session, active participant. Client appeared to connect with the quote sharing fear keeps you stuck in your comfort zone. Client identified things in her life that are holding her back from moving towards mental wellness such as procrastination, unrealistic expectations of self, and negative thought patterns. Client shared sometimes I want to make change, but then I procrastinate. Client stated she wants to take back control over these stressors and symptoms because client is tired of dealing with them. Client appeared to benefit from identifying stressors and symptoms holding her back and participating in a symbolic activity. Client stated it is important to actually do something and take action in one's mental health treatment, or else significant changes will not happen. Client to continue IOP as she has progressed with implementing healthy coping strategies, but can benefit from maintenance and increased mood stability. Eye Contact:: Good Motor Activity:: Appropriate Appearance:: Casual Speech:: Appropriate Mood:: Euthymic Affect:: Congruent Thoughts:: Linear, Logical, No evidence of hallucinations/delusions noted Staff Interventions:: Therapist facilitated discussion about what it means to take action in achieving mental health wellness. Therapist led activity in which clients were asked to identify the symptoms and things that they would like to take back control over. Therapist provided support by using active listening. Psychotherapy Session #3 Date Open:: 08/04/17 - 8 group members Time Started:: 11:30 Time Stopped:: 12:25 Targeted Problem #:: 1 Type of Group:: Functional Skills Development Goal of Group:: The goal of this session was to create a 30 day action plan that provides small goals that work towards taking action on one thing they would like to take back control over. Client Response/Progress/Benefit:: Client responded well to session, active participant. Client created a 30-day action plan to promote emotional wellness and take back control over her mental health. Client's goal for the next 30 days is no more negative thoughts all the time. Client reported this plan will benefit client because when I get rid of these thoughts I will feel better and enjoy life more. Client's steps included writing down positive affirmations daily and hanging them up, journaling progress each day, and start volunteering to keep busy and give back. Client appeared to benefit from identifying and creating a 30-day action plan that will improve her mental wellness. Progress noted as client reports reduced depressive symptoms and generalization of healthy coping skills, but continues to struggle with all or nothing thinking. Eye Contact:: Good Motor Activity:: Appropriate Appearance:: Casual Speech:: Appropriate Mood:: Euthymic Affect:: Congruent Thoughts:: Linear, Logical, No evidence of hallucinations/delusions noted Staff Interventions:: Therapist provided materials and guidance to help clients create a 30 day action plan. Therapist provided support by giving feedback and using active listening.
--- NOTE | 2017-08-04 17:36 | BH.SGPN ---
Service Group Progress Note - Session Psychotherapy Session #1 Date Open:: 08/04/17 Time Started:: 09:04 Time Stopped:: 10:24 Targeted Problem #:: 1 Type of Group:: Process - 8 participants Goal of Group:: The goal of today's group was to check-in with client's mood, stressors, and positives, review homework and introduce topic for the day. Client Response/Progress/Benefit:: Client responded well to session and was open to sharing with the group. She discussed experiencing ongoing frustration regarding her continued emotional ups and downs. She expressed believing that by this point in treatmet she would have more significant and observeable improvents and is is confused as she does not find herself able to identify any particular triggers for times she experiences increased depressive sx. CLient benefitted from the group reminding her of her progress and aided client in identifying some of the improvements in her mental health management and overall mood that they have observed. Client is beginning to display progress in her ability to apply healthy skills during these times of increased depression. Recommended continued IOP to improve symptom management and client ability to identify and challenge distorted thinking patterns. Eye Contact:: Good Motor Activity:: Appropriate Appearance:: Casual Speech:: Appropriate, Soft Mood:: Depressed Affect:: Flat Thoughts:: Linear, Logical, No evidence of hallucinations/delusions noted Staff Interventions:: Therapist used open-ended questions to elicit information about client's current stressors and mood state. Therapist was supportive by using active listening and reflection.
--- NOTE | 2017-08-07 14:31 | BH.SGPN ---
Service Group Progress Note - Session Psychotherapy Session #2 Date Open:: 08/07/17 Time Started:: 10:15 Time Stopped:: 11:10 Targeted Problem #:: 1 Type of Group:: Illness Management Goal of Group:: To increase understanding and awareness of emotions connected to change and the impact those emotions can have on change. Client Response/Progress/Benefit:: Client contributed positively discussion and listened attentively to others. Client identified fear failure as 1 of her barriers to making change. Client reported being unhappy and not willing to stay stuck in his what propelled her to start making changes towards something different. Client connected with the process of change recognizing it takes time and effort in order for positive change. Seemed to benefit from identifying and connecting various emotions that can be experienced when in the middle change in how emotions can either hold one back or help one move forward. Client demonstrated progress as evidenced by increased productivity and reporting decreased depressive symptoms. Client to continue IOP to maintain gains, prevent decompensation and stabilize moods. Eye Contact:: Good Motor Activity:: Appropriate Appearance:: Casual Speech:: Appropriate Mood:: Euthymic Affect:: Congruent Thoughts:: Linear, Logical, No evidence of hallucinations/delusions noted Staff Interventions:: Therapist facilitated group discussion about change. Therapist led the group in an activity in which the activity was utilized as a tool to increase clients awareness of emotions connected with change. Therapist led the processing of how each emotion was connected with change. Therapist provided psychoeducation process of change, helped group members apply it to their life. Therapist was supportive by providing feedback and using reflective listening. Psychotherapy Session #3 Date Open:: 08/07/17 Time Started:: 11:20 Time Stopped:: 12:15 Targeted Problem #:: 1 Type of Group:: Functional Skills Development Goal of Group:: To identify the challenges associated with making change and identify positive outcomes that have resulted from changes made in past. Client Response/Progress/Benefit:: Client active to spend as evidenced by making multiple contributions to discussion as well as listening to others. During group activity client was engaged and worked cooperatively with others. Client connected the importance of setting goals and making a change because if ones goals are too unrealistic there is a greater chance of giving up versus if there are more manageable goals that can help provide motivation and accomplishment. Client identified one small change she is going to make is to identify one accomplishments she has made every day to help her recognize that she is making progress. Seemed benefit from increasing awareness of what can help with making changes as well as focusing on one small task she can complete to help her move forward. Eye Contact:: Good Motor Activity:: Appropriate Appearance:: Casual Speech:: Appropriate Mood:: Euthymic Affect:: Congruent Thoughts:: Linear, Logical, No evidence of hallucinations/delusions noted Staff Interventions:: Therapist led group in an activity to help group members recognize the challenges associated with change. Therapist utilized activity as a tool to identify ways to manage changes and adapt to the challenges that ensue. Therapist facilitated group discussion about positive outcomes from change.
--- NOTE | 2017-08-07 14:47 | BH.SGPN_ITS ---
Service Group Progress Note - Session Psychotherapy Session #1 Date Open:: 08/07/17 - 8 group members Time Started:: 09:04 Time Stopped:: 10:02 Targeted Problem #:: 1 Type of Group:: Process Goal of Group:: The goal of today's group was to check-in with client's mood, stressors, and positives, and introduce topic for the day. Client Response/Progress/Benefit:: Client responded well to session, active participant. Client reports feeling anxious, but hopeful today as client continues to have negative thoughts about progress, but has been using positive self-talk. Client shared, I've been telling myself I may not feel better right now, but I will be okay. Client reported saying this out loud has helped client acknowledge her emotions and remind herself the feelings will not last forever. Client shared weekends continue to be most challenging for her, but this weekend she kept busy and made a schedule which improved client's mood. Client appeared to benefit from recognizing positives. Progress noted in client' s improved mood and report of reduced symptoms. However, client continues to struggle with unrealistic expectations, anxiety, and negative thoughts. Eye Contact:: Good Motor Activity:: Appropriate Appearance:: Casual Speech:: Appropriate Mood:: Euthymic, Anxious Affect:: Congruent Thoughts:: Linear, No evidence of hallucinations/delusions noted Staff Interventions:: Therapist used open-ended questions to elicit information about client's current stressors and mood state. Therapist was supportive by using active listening and reflection.
--- NOTE | 2017-08-07 14:47 | BH.MDN ---
Multi-Disciplinary Note - Note 45-min Individual Time Started:: 12:37 Date: 08/07/17 Purpose of session/treatment goals addressed:: The purpose of this session was to establish a daily routine to help reduce anxiety and increase sense of accomplishment in the mornings. Another was to increase mental health awareness and knowledge to help client more effectively cope with symptoms. Eye Contact:: Good Motor Activity:: Appropriate Appearance:: Casual Speech:: Appropriate Mood:: Euthymic, Anxious Affect:: Congruent Thoughts:: Linear, No evidence of hallucinations/delusions noted Staff Interventions:: Therapist used active listening and open-ended questions to help client establish a morning routine. Therapist used scaling questions to increase client awareness of the changes client would like to make and the steps to take. Therapist explored client's interests, supports, and passions to help client develop a rewards calendar to promote a sense of accomplishment and reduce anxiety. Therapist provided psychoeducation on anxiety and the fear response. Client Response:: Client responded well to session, open to meeting with therapist. Client reported the weekend was better than it has been and client is beginning to recognize progress. Client shared she has been keeping busy, using positive self-talk, and using mindfulness which have helped client manage anxiety. Client rated her anxiety from day one 9 out of 10 (10being high) to now 7 out of 10 which shows progress. Client reported her anxiety is still too high, especially in the mornings since client is not working. Client was receptive to creating a routine and rewards system. Client identified one goal each morning that will give client a sense of accomplishment. Client's goals included: going to niece's house, volunteering, cleaning her kitchen, and walking. Client plans to reward herself with a special coffee drink on Monday should client accomplish at least four goals. Client reported this plan will help as it will keep me busy and I'll be doing good for others. Client and therapist also discussed the function of anxiety as the body's fire alarm and how it is important to perform the activity that makes client anxious to help inform client's brain of a false alarm. Client and therapist also reviewed healthy coping skills to use when client begins recognizing warning signs for anxiety. Risks/Concerns:: Client denies suicidal ideation, plan, and intent as of 08/07/17. Progress Toward Goals/Plan:: Client demonstrating progress as shown by her report of reduced intensity of anxiety and improved functioning. Client shared her weekend was better than last week due to client using healthy coping skills and incorporating a structured routine. However, client continues to report higher anxiety in the mornings, avoidance, and negative thinking. Client to continue IOP to promote gains and reduce anxiety. Client to follow up with homework and volunteering tomorrow. Time Stopped:: 13:24
--- NOTE | 2017-08-07 15:38 | BH.SGPN_ITS ---
Service Group Progress Note - Session Psychotherapy Session #2 Date Open:: 07/31/17 Time Started:: 10:25 Time Stopped:: 11:15 Targeted Problem #:: 1 Type of Group:: Illness Management Goal of Group:: To increase understanding of pitfalls and impact can have on mental health. Client Response/Progress/Benefit:: Client active participant, listened attentively to others and contributed to discussion. Client shared she is starting to recognize it takes time for things to get better and she can see progress in herself, which she wasn?t able to see last week. Client worked cooperatively with peers during team challenge activity, identified importance of communication as a skill in helping one avoid falling in personal pitfalls. Client seemed to benefit from increasing understanding of how personal pitfalls can impact progress. Eye Contact:: Fair Motor Activity:: Appropriate Appearance:: Casual Speech:: Appropriate Mood:: Dysthymic Affect:: Constricted Thoughts:: Linear, Logical, No evidence of hallucinations/delusions noted Staff Interventions:: Therapist facilitated discussion about pitfalls and assisted group in identifying common pitfalls that can set you back. Therapist led group in an activity to help group understand impact pitfalls can have on oneself and identify strategies that could help you get back on the right path. Therapist provided support by using active listening and providing feedback. Psychotherapy Session #3 Date Open:: 07/31/17 Time Started:: 11:25 Time Stopped:: 12:15 Targeted Problem #:: 1 Type of Group:: Functional Skills Development Goal of Group:: To identify personal pitfalls and what keeps them stuck from moving forward. Client Response/Progress/Benefit:: Client listened attentively to others and shared her thoughts and ideas with group. Client reported she had a hard time identifying her personal pitfalls because she doesn?t like to think about the negatives. Client did identify comparting self to others and not seeing progress as two of her biggest personal pitfalls. Client reported she is willing to recognize she has made progress by thinking back to where she was when she started IOP. Client seemed to benefit from identifying a small goal for the day. Client progress could be hindered if client continues to avoid identifying and facing the issues that could be keeping her stuck. Eye Contact:: Good Motor Activity:: Appropriate Appearance:: Casual Speech:: Appropriate Mood:: Dysthymic Affect:: Constricted Thoughts:: Linear, Logical, No evidence of hallucinations/delusions noted Staff Interventions:: Therapist facilitated activity in which group members were given the task to identify personal pitfalls and what keeps them stuck from moving past the pitfall. Therapist provided group members with the homework assignment of identifying strategies that can help them overcome pitfalls.
--- NOTE | 2017-08-08 10:24 | BH.SGPN_ITS ---
Service Group Progress Note - Session Psychotherapy Session #1 Date Open:: 08/02/17 Time Started:: 09:10 Time Stopped:: 10:05 Type of Group:: Process - 7 group members Goal of Group:: The goal of today's group was to check-in with client's mood, stressors, and positives, and review homework. Client Response/Progress/Benefit:: Active participant in group discussion. Emotion for today is ?optimistic?. Shared that she is having a hard time being patient with her mental health progress. Understands that it will take some time to see significant improvement, however is able to see small progress. States ?I?m getting better? reporting that her MH symptoms of anxiety, depression, and dissociation are not as severe. Reports being more hopeful and motivated in the AM. Discussed that during group yesterday she had a goal to visit with friends and family more. Reports that she actually stopped over her niece?s house and ended up spending the afternoon with her. Able to see benefits of stepping outside of comfort zone. Progress noted AEB by pt report. Will continue in IOP to prevent decompensation, maintain gains, and increase daily functioning. Noted decrease in daily anxiety however continues to report depressive symptoms. Eye Contact:: Good Motor Activity:: Restless Appearance:: Disheveled Speech:: Appropriate Mood:: Anxious, Depressed Affect:: Congruent Thoughts:: Linear, Logical, No evidence of hallucinations/delusions noted Staff Interventions:: Therapist used open-ended questions to elicit information about client's current stressors and mood state. Therapist was supportive by using active listening and reflection
--- NOTE | 2017-08-08 17:21 | BH.SGPN_ITS ---
Service Group Progress Note - Session Psychotherapy Session #2 Date Open:: 08/02/17 group members Time Started:: 10:17 Time Stopped:: 11:12 Targeted Problem #:: 1 Type of Group:: Illness Management Goal of Group:: To identify within self what is keeping client trapped from achieving better quality of life. Client Response/Progress/Benefit:: Client responded well to session, participating in discussion. Client connected with the quote sharing I?ve built agustin in the past. Client stated anxiety and depression can keep a person stuck. Client able to connect how one's negative thoughts can make her feel trapped as well. Client identified negative thoughts keeping her trapped as I'm not good enough and what if something bad happens. Client shared she does not like thinking about her negative thoughts, but with therapist elicitation, client realized having awareness of cognitive distortions helps client be proactive and not fall into ?thought traps.? Client appeared to benefit from reflecting on thoughts keeping client from achieving mental wellness. Progress noted as client appears to have increased mental health awareness, but continues to struggle with negative self-talk and black and white thinking. Eye Contact:: Good Motor Activity:: Appropriate Appearance:: Disheveled Speech:: Appropriate Mood:: Depressed Affect:: Constricted Thoughts:: Linear, Logical, No evidence of hallucinations/delusions noted Staff Interventions:: Therapist facilitated discussion about what is keeping client?s stuck from moving toward mental wellness. Therapist assisted clients in connecting how thoughts can contribute to keeping clients stuck. Therapist led discussion about barriers clients face from making changes to help one move forward. Therapist provided support by using active listening and giving feedback to others. Psychotherapy Session #3 Date Open:: 08/02/17 8 group members Time Started:: 11:25 Time Stopped:: 12:20 Targeted Problem #:: 1 Type of Group:: Functional Skills Development Goal of Group:: To identify what client can do to release self from those things that are trapping them to find more peace and quality in everyday life. Client Response/Progress/Benefit:: Client responded well to session, active group member. Client selected I?m not good enough as the negative thought keeping her most trapped. Client shared this thought leads to feeling more depressed and not wanting to do things. Client stated the thought feels realistic, but she recognizes it is unrealistic. Client reframed her thought to I am good enough for somethings.? Client stated the reframed thought would impact her behaviors and mood because client would feel better about herself and have increase self-confidence. Client shared today?s group helped client value positive thoughts and remind herself that she good enough. Client also helped the group identify strategies to reframe negative thinking. Client appeared to benefit from learning various strategies to challenge negative thinking. Client to continue IOP to prevent decompensation and reduce depressive symptoms. Eye Contact:: Good Motor Activity:: Appropriate Appearance:: Disheveled Speech:: Appropriate Mood:: Depressed Affect:: Constricted Thoughts:: Linear, Logical, No evidence of hallucinations/delusions noted Staff Interventions:: Therapist used examples of maintenance cycles to help clients gain awareness of how negative thinking is keeping clients stuck. Therapist facilitated discussion about different strategies for challenging negative thoughts, assisting clients in connecting how the strategies could benefit them. Therapist provided clients with homework to focus on one thing that is keeping them stuck and identify small steps to start moving towards mental wellness.
--- NOTE | 2017-08-08 17:22 | BH.SGPN_ITS ---
Service Group Progress Note - Session Psychotherapy Session #2 Date Open:: 08/04/17 9 group members Time Started:: 10:30 Time Stopped:: 11:20 Targeted Problem #:: 1 Type of Group:: Illness Management Goal of Group:: The goal of this session was to increase self-awareness of what is holding them back from moving towards mental wellness and discuss importance of taking action in their treatment. Client Response/Progress/Benefit:: Client responded well to session, active participant. Client appeared to connect with the quote sharing ?fear keeps you stuck in your comfort zone.? Client identified things in her life that are holding her back from moving towards mental wellness such as procrastination, unrealistic expectations of self, and negative thought patterns. Client shared ? sometimes I want to make change, but then I procrastinate.? Client stated she wants to take back control over these stressors and symptoms because client is ? tired of dealing with them.? Client appeared to benefit from identifying stressors and symptoms holding her back and participating in a symbolic activity. Client stated it is important to actually do something and take action in one's mental health treatment, or else significant changes will not happen. Client to continue IOP as she has progressed with implementing healthy coping strategies, but can benefit from maintenance and increased mood stability. Eye Contact:: Good Motor Activity:: Appropriate Appearance:: Casual Speech:: Appropriate Mood:: Euthymic Affect:: Congruent Thoughts:: Linear, Logical, No evidence of hallucinations/delusions noted Staff Interventions:: Therapist facilitated discussion about what it means to take action in achieving mental health wellness. Therapist led activity in which clients were asked to identify the symptoms and things that they would like to take back control over. Therapist provided support by using active listening. Psychotherapy Session #3 Date Open:: 08/04/17 - 8 group members Time Started:: 11:30 Time Stopped:: 12:25 Targeted Problem #:: 1 Type of Group:: Functional Skills Development Goal of Group:: The goal of this session was to create a 30 day action plan that provides small goals that work towards taking action on one thing they would like to take back control over. Client Response/Progress/Benefit:: Client responded well to session, active participant. Client created a 30-day action plan to promote emotional wellness and take back control over her mental health. Client's goal for the next 30 days is no more negative thoughts ?all the time.? Client reported this plan will benefit client because ?when I get rid of these thoughts I will feel better and enjoy life more.? Client's steps included writing down positive affirmations daily and hanging them up, journaling progress each day, and start volunteering to keep busy and give back. Client appeared to benefit from identifying and creating a 30-day action plan that will improve her mental wellness. Progress noted as client reports reduced depressive symptoms and generalization of healthy coping skills, but continues to struggle with all or nothing thinking. Eye Contact:: Good Motor Activity:: Appropriate Appearance:: Casual Speech:: Appropriate Mood:: Euthymic Affect:: Congruent Thoughts:: Linear, Logical, No evidence of hallucinations/delusions noted Staff Interventions:: Therapist provided materials and guidance to help clients create a 30 day action plan. Therapist provided support by giving feedback and using active listening.
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
--- NOTE | 2017-08-10 10:17 | BH.SGPN ---
Service Group Progress Note - Session Psychotherapy Session #1 Date Open:: 08/10/17 Time Started:: 09:10 Time Stopped:: 10:00 Type of Group:: Process - 5 group members Goal of Group:: The goal of today's group was to check-in with client's mood, stressors, and positives, and review homework. Client Response/Progress/Benefit:: Pt was an active participant in group discussion. Emotion for today is hopeful. Shared with the group that she developed a daily routine which is helpful to better manage her emotions specifically anxiety in the AM. Also utilizing self-care techniques, coping skills, and thought re-framing. Continues to report significant anxiety on a daily basis, frustrations with anxiety with no trigger, and slow progress of symptom reduction. States I still have high anxiety however it is less. Benefited from group support, feedback, and praise. Progress noted however continues to report daily significant anxiety. Will continue to in IOP to stabilize anxiety, prevent futher decompensation, and improve daily functioning. Eye Contact:: Good Motor Activity:: Appropriate Appearance:: Casual Speech:: Appropriate Mood:: Anxious Affect:: Congruent Thoughts:: Linear, Logical, No evidence of hallucinations/delusions noted Staff Interventions:: Therapist used open-ended questions to elicit information about client's current stressors and mood state. Therapist was supportive by using active listening and reflection.
--- NOTE | 2017-08-10 10:38 | BH.SGPN_ITS ---
Service Group Progress Note - Session Psychotherapy Session #2 Date Open:: 08/09/17 Time Started:: 10:25 Time Stopped:: 11:15 Targeted Problem #:: 1 Type of Group:: Illness Management Goal of Group:: To increase understanding how positive and negative forces in life can impact balance in life. Client Response/Progress/Benefit:: Client contributed to discussion and listened attentively to others. Client connected with others that growth will not just occur on it's own. She shared it would be nice if things would just get better, but recognizes that isn't reality and needs to put forth effort to make that happen. Client identified learning about the different strategies to help with personal growth was beneficial. Eye Contact:: Good Motor Activity:: Appropriate Appearance:: Casual Speech:: Appropriate Mood:: Euthymic Affect:: Congruent Thoughts:: Linear, Logical, No evidence of hallucinations/delusions noted Staff Interventions:: Therapist facilitated group discussion about the various forces of life and helped clients connect the impact they have on balance in life. Therapist led group in an experiential activity in which group members had to work together to balance an object and move it to a designated location. Therapist utilized the activity as a tool to process the challenges connected with balancing various forces. Psychotherapy Session #3 Date Open:: 08/09/17 Time Started:: 11:22 Time Stopped:: 12:15 Targeted Problem #:: 1 Type of Group:: Functional Skills Development Goal of Group:: To identify positive and negative forces in life and identify which forces are helping stability and which forces are contributing to instability. Client Response/Progress/Benefit:: Client contributed to discussion, worked cooperatively with others and listened attentively to peers. Client identified her positive forces to include: positive self-talk, IOP group therapy, communication, medications, arline, and prayer. Client shared her negative forces to include: lack of confidence, focus too much on negative situation, rumination, and high expectations of self. Client identified her positive self talk and arline to be the most impactful forces in her life currently. Client seemed to benefit from increasing awareness of her positive and negative forces as well as identifying 2 small things she can do to improve stability and balance between forces. Eye Contact:: Good Motor Activity:: Appropriate Appearance:: Casual Speech:: Appropriate Mood:: Euthymic, Anxious Affect:: Congruent Thoughts:: Linear, Logical, No evidence of hallucinations/delusions noted Staff Interventions:: Therapist provided group with an example of a scenario of a person and the individual???s positive and negative forces. Therapist provided each group member with a worksheet in which they were to identify five positive and five negative forces in their life. Therapist processed the activity with the group, helping others connect the impact certain forces have on their life balance.
--- NOTE | 2017-08-10 13:46 | BH.SGPN_ITS ---
Service Group Progress Note - Session Psychotherapy Session #2 Date Open:: 08/10/17 - 6 group members Time Started:: 10:10 Time Stopped:: 11:07 Targeted Problem #:: 1 Type of Group:: Illness Management Goal of Group:: To increase self-awareness of current reality in regards to mental wellness and desired mental wellness. Client Response/Progress/Benefit:: Client responded well to session, active participant. Client connected with the quote sharing, it's better to focus on the barriers you create because you can actually do something about that. Client created a visual of her current mental health reality which depicted client driving on the road to recovery with her goals in view, but not yet to where she wants to be. Client shared she continues to struggle with anxiety, negative self-talk, and high expectations which keep client stuck. Client shared her desired reality is being able to face hardships with confidence and calm while driving down the road to recovery. Client shared her desired reality is realistic and not too far away which demonstrates progress and client reported she used to be hopeless. Client appeared to benefit from gaining awareness of her current mental health reality. Progressed noted in client's report of an improved mood and functioning, but can continue to challenge negative thoughts. Eye Contact:: Good Motor Activity:: Appropriate Appearance:: Casual Speech:: Appropriate Mood:: Euthymic Affect:: Congruent Thoughts:: Linear, Logical, No evidence of hallucinations/delusions noted Staff Interventions:: Therapist facilitated group discussion about current reality in regards to mental health. Client provided each group member a piece of paper and asked them to draw their current reality. Therapist led the processing of each group member?s drawing. Therapist provided each group member with a second piece of paper and asked clients to draw desired mental wellness. Therapist processed each group member?s drawing, helping clients connect the two realities. Psychotherapy Session #3 Date Open:: 08/10/17 - 5 group members Time Started:: 11:17 Time Stopped:: 12:14 Targeted Problem #:: 1 Type of Group:: Functional Skills Development Goal of Group:: To identify obstacles in client?s path to mental wellness and identify strategies to help clients overcome these obstacles. Client Response/Progress/Benefit:: Client responded well to session, engaged in activity. Client identified personal barriers keeping client from reaching her desired reality such as unrealistic expectations, negative self-talk, low energy , and lack of motivation. Client shared these obstacles prevent client from moving forward and create self-doubt. Client participated in the activity and helped the group identify strategies to overcome barriers such as positive affirmations, asking for help, and keeping her goal in sight. Client appeared to benefit from increasing awareness of barriers and gaining knowledge for how to overcome barriers. Progress noted in client's reduced anxiety, but has yet to return to work due to feeling overwhelmed. Client to continue IOP to promote gains and increase mood stability. Eye Contact:: Good Motor Activity:: Appropriate Appearance:: Casual Speech:: Appropriate Mood:: Euthymic Affect:: Congruent Thoughts:: Linear, Logical, No evidence of hallucinations/delusions noted Staff Interventions:: Therapist facilitated group discussion about obstacles and the hesitations of overcoming obstacles. Client led group in discussion about what obstacles they have control over and which obstacles are out of their control. Therapist helped clients connect how each obstacle is preventing them from achieving their desired reality. Therapist led an activity aimed to help clients use teamwork and problem-solving to establish strategies for overcoming obstacles. Therapist assisted clients in creating a list of various strategies to promote emotional wellness and overcome barriers. Therapist provided support by using reflective listening and providing feedback.
--- NOTE | 2017-08-14 14:33 | BH.SGPN_ITS ---
Service Group Progress Note - Session Psychotherapy Session #2 Date Open:: 08/14/17 - 8 group members Time Started:: 10:20 Time Stopped:: 11:17 Targeted Problem #:: 1 Type of Group:: Illness Management Goal of Group:: To identify the importance of change, increase understanding of difficulty of making change, identify what clients would like to make changes in and identify the barriers or obstacles that get in the way of change. Client Response/Progress/Benefit:: Client responded well to session, active participant. Client connected with quote, stating, if you keep re-reading you don't get better. Client stated change is important because it gets one out of their comfort zone and can improve a situation. Client identified changes she would like to make this week as being more physically active, working in flower beds, and reaching out to new people. Client shared these goals would improve her mood and keep her active. Client identified barriers to these goals such as low energy and fear of the unknown. Client appeared to benefit from gaining awareness of the importance of change and identifying changes she would like to make this week. Client progressing as evidenced by her use of coping skills, but can continue to benefit from challenging negative thoughts. Eye Contact:: Good Motor Activity:: Appropriate Appearance:: Neat Speech:: Appropriate Mood:: Euthymic Affect:: Congruent Thoughts:: Linear, Logical, No evidence of hallucinations/delusions noted Staff Interventions:: Therapist facilitated discussion about change and helped client?s make connections of why change is important. Therapist led group in an experiential activity which involved client?s identifying changes want to make and barriers that get in the way of making those changes. Therapist utilized activity as a tool to help client?s make connections of difficulties in making changes and identify what helps overcome barriers to change. Psychotherapy Session #3 Date Open:: 08/14/17 - 8 group members Time Started:: 11:23 Time Stopped:: 12:15 Targeted Problem #:: 1 Type of Group:: Functional Skills Development Goal of Group:: To identify specific barriers to an identified change clients want to make and identify ways to overcome those barriers. Client Response/Progress/Benefit:: Client responded well to session, active participant. Client processed activity and connected it to life outside of group with the challenges and supports of making change. Client identified walking and getting exercise 6-7 days a week as a change she would like to incorporate. Client's barriers were negative self-talk, low energy, and low motivation. Client helped the group create strategies to overcome these barriers such as getting out in the sun, routine, doing one thing at a time, and having an accountability support. Client appeared to benefit from identifying strategies to overcome barriers. Progress noted in client's increased insight and use of positive self-talk, but continues to struggle with unrealistic expectations. Eye Contact:: Good Motor Activity:: Appropriate Appearance:: Neat Speech:: Appropriate Mood:: Anxious Affect:: Constricted Thoughts:: Linear, No evidence of hallucinations/delusions noted Staff Interventions:: Therapist facilitated discussion about what helped the group overcome challenges that came about during the experiential activity. Therapist utilized the activity as a tool in relating those experiences to ways to overcome barriers with challenges in their life when trying to make change. Therapist group into smaller groups and had them brainstorm ways to overcome certain barriers to their identified change. Therapist provided support by using reflective listening and providing feedback.
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
--- NOTE | 2017-08-15 09:15 | BH.SGPN_ITS ---
Service Group Progress Note - Session Psychotherapy Session #1 Date Open:: 08/14/17 Time Started:: 09:10 Time Stopped:: 10:10 Type of Group:: Process - 8 group members Goal of Group:: The goal of today's group was to check-in with client's mood, stressors, and positives, and review homework. Client Response/Progress/Benefit:: Active participant in group discussions. Provided appropriate feedback. Emotion for today is anxious. Shared that she has had some ups and downs this past weekend. She attended an [employer] wedding which made her feel uncomfortable at times. She reports that was able to manage her thoughts and anxiety while at the two day event however reports increase in symptoms on Monday night. She is unsure what caused the increase in anxiety, panic, and dissociative feelings however it led to isolative behaviors. Further processing provided some insight. Pt was proud of herself for attending the wedding and not avoiding or isolating stating that she would not have had the confidence to attend the wedding 3 weeks ago. Benefited from feedback and support from the group. Progress noted in regards to facing an anxiety trigger and managing emotions. Will continue in IOP to prevent further decompensation, stablize anxiety, and improve daily functioning. Eye Contact:: Fair Motor Activity:: Restless Appearance:: Casual Speech:: Appropriate Mood:: Anxious Affect:: Congruent Thoughts:: Linear, Logical, No evidence of hallucinations/delusions noted Staff Interventions:: Therapist used open-ended questions to elicit information about client's current stressors and mood state. Therapist was supportive by using active listening and reflection.
--- NOTE | 2017-08-15 14:38 | BH.COMM ---
Communication Note - Communication with Client Communication Note: Client stopped into IOP to follow up with this therapist after her doctors appointment to provide updates and check in on mood and coping. Client shared her doctor's appointment went well and her doctor increased client's medication. Client shared she is confident about the medication change. Client reported feeling much better than Monday and better than yesterday. Client stated the individual IOP session helped her yesterday and so did using grounding and self-talk techniques. Client reports plan to use self-care tonight and volunteer tomorrow. Client to attend group on 08/17/17.
--- NOTE | 2017-08-15 14:43 | BH.COMM_ITS ---
Communication Note - Communication with Client Communication Note: Client stopped into IOP to follow up with this therapist after her doctor?s appointment to provide updates and check in on mood and coping. Client shared her doctor's appointment went well and her doctor increased client's medication. Client shared she is confident about the medication change. Client reported feeling much better than Monday and better than yesterday. Client stated the individual IOP session helped her yesterday and so did using grounding and self-talk techniques. Client reports plan to use self-care tonight and volunteer tomorrow. Client to attend group on 08/17/17.
--- NOTE | 2017-08-15 14:48 | BH.SGPN_ITS ---
Service Group Progress Note - Session Psychotherapy Session #2 Date Open:: 08/01/17 Time Started:: 10:17 Time Stopped:: 11:07 Targeted Problem #:: 1 Type of Group:: Illness Management Goal of Group:: The goal of group was to increase understanding of goals and goal setting and practice a method of goal setting. Client Response/Progress/Benefit:: Client alert and oriented, providing feedback and listening attentively to others. Client reported goals are important because can help you move forward, give you something to look forward to and keeps mind focused on the positive. Client connected with others comments about fear of failing being a barrier to setting goals. Client seemed to benefit from learning about setting SMART goals. Client showing progress as evidenced by focusing on the positive and verbalizing able to see progress in herself. Eye Contact:: Good Motor Activity:: Appropriate Appearance:: Casual Speech:: Appropriate Mood:: Euthymic Affect:: Congruent Thoughts:: Linear, Logical, No evidence of hallucinations/delusions noted Staff Interventions:: Therapist facilitated group discussion about goals and goal setting. Therapist taught group the acronym SMART (Specific, Measurable, Achievable, Realistic, Timely) as a tool to help with goal setting. Therapist led the group in an activity to be used as a method of practicing goal setting. Therapist guided the group through the SMART acronym as group was participating in activity. Therapist assisted group members with connecting the importance of making small, realistic goals. Psychotherapy Session #3 Date Open:: 08/01/17 Time Started:: 11:20 Time Stopped:: 12:15 Targeted Problem #:: 1 Type of Group:: Functional Skills Development Goal of Group:: The goal of group was to identify a goal for the weekend, explore the potential barriers to achieving that set goal, and identify strategies to overcome barriers. Client Response/Progress/Benefit:: Client active participant AEB client contributing to discussion and provided feedback to others. Client identified her SMART goal to be: talk on the phone or see a relative once a day. Client stated this would benefit her by getting out of the house or at least having contact with a person each day. Client identified obstacles to be: apathy and procrastincation. Client reported she could overcome these obstacles by reminding herself of the benefit and keeping her goal in mind. Client noted it' s important for her to remember to set attainable goals. Client seemed to benefit from setting a SMART goal that she can focus on for the week. Eye Contact:: Good Motor Activity:: Appropriate Appearance:: Casual Speech:: Appropriate Mood:: Euthymic Affect:: Congruent Thoughts:: Linear, Logical, No evidence of hallucinations/delusions noted Staff Interventions:: Therapist facilitated group activity in which group members identified a goal to work on over the next week. Therapist asked group members to identify barriers to achieving identified goal and strategies to help them achieve their goal. Therapist led group in processing their goal maps , assisting clients with establishing SMART goals. Therapist provided support by using reflective listening.
--- NOTE | 2017-08-15 16:05 | BH.SGPN_ITS ---
Service Group Progress Note - Session Psychotherapy Session #1 Date Open:: 08/01/17 Time Started:: 09:07 Time Stopped:: 10:12 Targeted Problem #:: 1 Type of Group:: Process - 4 participants Goal of Group:: The goal of today's group was to check-in with clients and review homework from previous group session. Client Response/Progress/Benefit:: Client responded well to session and was a positive participant throughout. She was able to actively provide input to the group and encourage others as they discussed current frustrations or difficulties. Client discussed that not much has changed since yesterday but that she continues to struggle with remaining patient regarding wanting her mental health to back to where it used to be sooner. Client shared feeling most frustrated that she continues to experience ?ups and downs? throughout the day, . She appeared to benefit from discussing with the group ways she is trying to challenge her negative thoughts during the down times as well as how she may benefit from beginning to track daily progress so she can she small ways in which her treatment is helping with managing mental health symptoms. Client showing progress in her ability to apply healthy skills in the moment but would benefit from continued IOP to increase consistency of skill application and prevent decompensation. Eye Contact:: Good Motor Activity:: Appropriate Appearance:: Casual Speech:: Appropriate Mood:: Depressed Affect:: Congruent Thoughts:: Linear, Logical, No evidence of hallucinations/delusions noted Staff Interventions:: Therapist facilitated the group session by asking open ended questions that encouraged group members to discuss their weekend and current mood state. Assisted group members in the review of their homework from previous group session.
--- NOTE | 2017-08-17 10:16 | BH.SGPN ---
Service Group Progress Note - Session Psychotherapy Session #1 Date Open:: 08/17/17 - 5 group members Time Started:: 09:03 Time Stopped:: 09:58 Targeted Problem #:: 1 Type of Group:: Process Goal of Group:: The goal of today's group was to check-in with client's mood, stressors, and positives, review homework and introduce topic for the day. Client Response/Progress/Benefit:: Client responded well to session, active participant and receptive to support from peers. Client reports feeling optimistic today as client has been having a few good days in a row after a really bad low this Monday. Client shared processing her triggers, using grounding techniques, and using positive self-talk has helped client manage her symptoms and improve her mood. 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 Client used self-talk to help get through the feelings of discomfort, stating, I know it will get better. Client appeared to benefit from reflecting on coping skills that have been helpful as well as gaining support from peers. Progress noted as shown by client's resilience and generalization of healthy coping skills to manage triggers and symptoms. Client to continue IOP to promote mood stability. Eye Contact:: Good Motor Activity:: Appropriate Appearance:: Neat Speech:: Appropriate Mood:: Euthymic Affect:: Congruent Thoughts:: Linear, Logical, No evidence of hallucinations/delusions noted Staff Interventions:: Therapist used open-ended questions to elicit information about client's current stressors and mood state. Therapist was supportive by using active listening and reflection.
--- NOTE | 2017-08-17 14:42 | BH.SGPN_ITS ---
Service Group Progress Note - Session Psychotherapy Session #2 Date Open:: 08/17/17 Time Started:: 10:07 Time Stopped:: 11:12 Targeted Problem #:: 1 Type of Group:: Illness Management - 5 participants Goal of Group:: The goal of group was to increase understanding of coping strategies and impact problems have on self. Another goal was to practice utilizing coping skills in the moment. Client Response/Progress/Benefit:: Client responded well to session and remained actively engaged throughout. She provided input to the conversation discussing the importance of using healthy coping skills in order to maintain mental health and wellness as well as provide encouragement to follow participants throughout the activity portion. Client appeared to benefit from engaging in the activity as she did well to make connections between the skills used such as patient's and creating a strong base back to components of healthy utilization of coping skills. Client is displaying progress in her ability to remain patient realistic with herself as she continues to make small strides towards increased symptom management. Commended continued IOP in order to maintain consistent use of thought challenging skills as well as prevent decompensation. Eye Contact:: Good Motor Activity:: Appropriate Appearance:: Casual Speech:: Appropriate Mood:: Euthymic Affect:: Full Thoughts:: Linear, Logical, No evidence of hallucinations/delusions noted Staff Interventions:: Therapist facilitated the group discussion about coping strategies. Therapist provided group members with folders and gave them the challenge to work together and build the tallest tower with the given supplies. Therapist utilized the activity as a tool to process what it feels like when dealing with problems and what strategies they used to cope throughout activity. Psychotherapy Session #3 Date Open:: 08/17/17 Time Started:: 11:19 Time Stopped:: 12:18 Targeted Problem #:: 1 Type of Group:: Functional Skills Development - 5 pareticipants Goal of Group:: Goal was to increase client?s self-awareness on their use of coping strategies and increase repertoire of healthy coping strategies. Client Response/Progress/Benefit:: Responded well to session. Client was an active participant throughout the discussion reviewing the various categories of healthy coping skills. Client indicated finding grounding techniques as well as thought challenging to be most beneficial for her. She benefited from reviewing the various pros and cons of other forms of coping such as self love, emotional release, and healthy distraction. Client is displaying progress in her ability to apply these coping skills during times of increased depression in her own life. Recommended continued IOP in order to further promote gains made in increased consistency as well as contain stability while client continues to work on managing mental health symptoms. Eye Contact:: Good Motor Activity:: Appropriate Appearance:: Casual Speech:: Appropriate Mood:: Euthymic Affect:: Congruent Thoughts:: Linear, Logical, No evidence of hallucinations/delusions noted Staff Interventions:: Therapist facilitated discussion about the different types of coping skills. Therapist led group in an activity in which group members were asked to brainstorm coping strategies that fit in each coping skill category. Therapist reviewed each coping strategy with the group and led a discussion about whether the coping strategies identified were healthy or unhealthy. Therapist provided homework in which group members creating a coping skills menu and would practice two skills a day.
--- NOTE | 2017-08-18 12:47 | PCM.PN.BLA ---
Progress Note Patient seen in follow-up for generalized anxiety disorder, PTSD, depressive disorder unspecified. History is been obtained per interview with patient, discussion with staff, review of chart. Case discussed with treatment team. Chief complaint-depression and anxiety Interim history Patient reports that depression persists over the last month but not as intense. It is very up and down. Ruminative anxiety persists but is more controlled. Attributes improvements to routine schedule throughout the week but finds unstructured schedule of the weekend difficult. Reports episode of increased anxiety last weekend associated with trauma memories triggered by nieces and sweating. Passive ego dystonic thoughts of last weekend. No suicide plan or intent. Feels able to maintain safety. I am confident I would call or drive myself to the hospital. No homicidal ideation. No symptoms consistent with psychosis. Sleeping from midnight to 6 AM. Denies napping. Appetite good. Denies nausea or vomiting. Reports diarrhea decreased to twice per week. Consuming less than 1 cup of caffeinated coffee daily. Compliant with medication. Denies adverse effects. Increased Paxil to 30 mg on Monday per recommendation of PCP. Mental status exam Alert and oriented. No acute distress. Ambulatory with normal gait and station. Casually dressed and groomed. Appropriate hygiene. Cooperative with interview. Good eye contact. No psychomotor agitation or retardation. Mood depressed. Affect congruent. Speech is clear and of regular rate and volume. Language fluent. Thought process organized. Associations logical. Thought content significant for ruminative anxiety and themes of depression. Passive fleeting thoughts of . No suicide plan or intent. Feels able to maintain safety. No homicidal ideation related to her detected. No evidence of psychosis related to her detected. Immediate recent and remote memory grossly intact. Attention and concentration are fair. Estimated intelligence fund of knowledge average. Judgment and insight are limited to fair. Labs 07/21/2017 Vitamin D 36 TSH 1.06 Diagnosis Generalized anxiety disorder PTSD Depressive disorder unspecified Plan Continue IOP as a structured setting is necessary to prevent decompensation. Risk-benefit alternatives of medications discussed with patient. Patient acknowledges understanding. Continue Paxil 30 mg daily. Encouraged to establish with outpatient psychiatric providers for when IOP complete. Discussed safety plan. Patient acknowledges understanding and is in agreement with plan. Feels able to maintain safety. Agrees to seek help or emergency care if feeling unsafe to self or others. 20 minutes of Insight oriented psychotherapy provided regarding trauma. Discussed coping head skills and structuring weekends.
--- NOTE | 2017-08-18 15:14 | BH.SGPN ---
Service Group Progress Note - Session Psychotherapy Session #1 Date Open:: 08/18/17 Time Started:: 09:10 Time Stopped:: 10:00 Type of Group:: Process - 8 group members Goal of Group:: The goal of today's group was to check-in with client's mood, stressors, and positives, and review homework Client Response/Progress/Benefit:: Pt spoke when prompted. Did not provide feedback however did appear attentive. Emotion for today is anxious. Reports mixed emotions and up and down depresssion/anxiety over the last few days. Shared that she is able to see her progress however continues to struggle with depressive symptoms. Negative thoughts increase when she is not busy or distracted. Able to verbalize that staying busy 19/09 is unrealistic. Admits that she is using some coping skills however has not tried thought re-framing or thought change skills. Group provided support and some suggestions on how to better encorporate this to decrease negative thoughts when not distracted. Pt was receptive. Progress noted since begining program however primary coping skills are mindfullness and distraction. Would benefit from incorporating more internal coping skills. Will continue in IOP to decrased anxiety/depression, prevent further decompensation, and improve functioning. Eye Contact:: Poor Motor Activity:: Appropriate Appearance:: Casual Speech:: Appropriate Mood:: Anxious, Depressed Affect:: Congruent Thoughts:: Linear, Logical, No evidence of hallucinations/delusions noted Staff Interventions:: Therapist used open-ended questions to elicit information about client's current stressors and mood state. Therapist was supportive by using active listening and reflection.
--- NOTE | 2017-08-21 08:24 | BH.MTP_ITS ---
Treatment Plan Review Date of Admission:: 07/21/17 Date of Treatment Plan Review:: 08/21/17 Admitting Diagnoses:: generalized anxiety disorder F41.1; PTSD; Depressive disorder unspecified Current Diagnoses:: generalized anxiety disorder F41.1; PTSD; Depressive disorder unspecified Patient's Response to Treatment:: Client appears to be responding well to treatment as shown by her consistent attendance, active participation in group and individual sessions, and generalization of healthy coping skills. Client reports group has helped her learn coping skills, increase confidence, and challenge cognitive distortions. Client shares the support provided by peers in group is beneficial as it helps client stay motivated and not feel like I'm alone. Client is compliant with medications and reports consistent generalization of healthy coping skills including grounding techniques, positive self-talk, and volunteering. Client continues to have what she describes as ?ups and downs? but with improved ability to cope and overcome triggers. Client has demonstrated progress as shown by her reduced overall DSM- 5 cross-cutting symptom scores. Client has increased socialization outside of group, attending weekly [employer]on group meetings and volunteering twice a week. Client is open to establishing outpatient counseling for continuity of care after discharging from [facility]. Status of Current Problems and Symptoms: Client reports ongoing mild depressive symptoms, typically worse in the mornings. Additionally, client continues to struggle with black and white thinking regarding progress that keeps client stuck at times. Client experienced a trauma trigger last weekend which led to increased depressive symptoms, dissociation, and passive thoughts of . Client reported being able to reduce these symptoms using self-talk and grounding. Client also continues to report mild anxiety symptoms including feeling worried and avoiding some situations that make her anxious. Problem #1 Problem Name:: Reduce depressive symptoms and increase her social support Status of Goals:: Client has not yet accomplished this treatment goal as she continues to report mild depressive symptoms. However, client has shown significant progress towards goal as shown by her increased social activity, client is currently volunteering twice a week and reports increased time spent with her support system. Client has also improved with identifying negative thoughts and using self-talk, although she continues to struggle with black and white thinking. Client's DSM-5 score for depression is a 3 out of a possible 8 which demonstrates progress as client went from moderate in one area to mild. Client reports having ups and downs but states she has improved ability to bounce back. Client and therapist currently working on challenging negative thinking and maintaining stability. Team Recommendations:: Client recommended to continue working towards treatment goal. Client has shown progress in reducing depressive symptoms, but can continue to benefit from challenging black and white thinking, improving self- confidence, and increasing mood stability. Client to continue volunteering, mormon group, and setting daily goals. Client and therapist have discussed establishing outpatient therapy and client is to follow up with scheduling at [facility]. Problem #2 Problem Name:: Reduce overall frequency, intensity, and duration of the anxiety Status of Goals:: Client has not yet accomplished this goal as she continues to report slight to mild anxiety symptoms. Client has demonstrated significant progress towards this treatment goal as evidenced by her reduced DSM-5 symptom measure scores for anxiety. At admission client scored a 10 out of 12, at treatment plan review client scored a 4 out of 12. Additionally, client reports increased use of calming strategies and improved self-awareness of PTSD and anxiety triggers. Team Recommendations:: Client recommended to continue working towards treatment goal. Client reports significant reduction in DSM-5 scores for anxiety, but she continues to report ruminations and what if thinking that lead to self-doubt and anxiety. Client recommended to continue utilizing healthy coping skills, volunteering, and using grounding techniques.
--- NOTE | 2017-08-21 14:56 | BH.SGPN_ITS ---
Service Group Progress Note - Session Psychotherapy Session #2 Date Open:: 08/21/17 - 9 group members Time Started:: 10:25 Time Stopped:: 11:15 Targeted Problem #:: 1 Type of Group:: Illness Management Goal of Group:: To increase understanding of communication and the various types of communication. Another goal was to increase understanding of impact communication styles can have. Client Response/Progress/Benefit:: Client responded well to session, active participant. Client connected with the quote sharing, our thoughts can keep us from talking with supports.? Client reported communication is an important part of mental health because it is helpful to share needs and express emotions with supports. Client identified communication ?roadblocks? such as negative thinking , mind-reading, and assumptions. Client helped the group identify the different communication types, sharing client uses passive and passive-aggressive communication most of the time. Client reported she does not communicate at times because she does not want to hurt other people?s feelings or have conflict. Client stated her communication style negatively impacts client because ?then my needs don?t get met.? Client appeared to benefit from gaining awareness of how communication impacts mental health. Progress noted as client reports improved mood and generalization of healthy coping skills, but continues to struggle with black and white thinking. Eye Contact:: Good Motor Activity:: Appropriate Appearance:: Neat Speech:: Appropriate Mood:: Euthymic Affect:: Congruent Thoughts:: Linear, Logical, No evidence of hallucinations/delusions noted Staff Interventions:: Therapist facilitated the group discussion about communication and explained the different types of communication. Therapist assisted group members in connecting the communication styles to the way they communicate and impact the communication style has on their relationships. Therapist provided support by using active listening and providing feedback. Psychotherapy Session #3 Date Open:: 08/21/17 - 7 group members Time Started:: 11:25 Time Stopped:: 12:15 Targeted Problem #:: 1 Type of Group:: Functional Skills Development Goal of Group:: To identify important components of communication and practice specific, clear communication. Client Response/Progress/Benefit:: Client responded well to session, active participant. Client engaged in the activity and utilizing assertive communication to express needs and emotions with peers. Client shared anxiety prevents client from being assertive at times, but overall client feels comfortable with providing her insight and thoughts during group. Client shared emotions, tone of voice, and audience impact communication. Client helped the group identify strategies to improve communication such as focusing on sharing her needs with supports, managing emotions, and being direct. Client appeared to benefit from practicing using effective communication. Client to continue IOP to prevent decompensation and further promote mood stability. Eye Contact:: Good Motor Activity:: Appropriate Appearance:: Neat Speech:: Appropriate Mood:: Anxious Affect:: Full Thoughts:: Linear, Logical, No evidence of hallucinations/delusions noted Staff Interventions:: Therapist led the discussion about important components of effective communication. Therapist had volunteers from group participate in a reverse Pictionary game. The game required all group members to provide clear , specific, and assertive communication to help the volunteer draw the correct image. Therapist used the activity as to connect the importance of effective communication in mental health treatment. Therapist processed the activity with the group and helped the group identify strategies to improve communication skills.
--- NOTE | 2017-08-21 14:56 | BH.MDN ---
Multi-Disciplinary Note - Note 45-min Individual Time Started:: 12:25 Date: 08/21/17 Purpose of session/treatment goals addressed:: The purpose of this session was to evaluate progress, connect client to outpatient counseling, and establish ongoing therapy goals. Another goal was to review coping skills and discuss discharge. Eye Contact:: Good Motor Activity:: Appropriate Appearance:: Neat Speech:: Appropriate Mood:: Euthymic Affect:: Full Thoughts:: Linear, Logical, No evidence of hallucinations/delusions noted Staff Interventions:: Therapist used open-ended questions and the DSM-5 cross cutting symptom measure to evaluate and alan client's progress. Therapist processed client's progress with client and helped client identify goals moving forward to promote mood stability and maintain gains. Therapist advocated for client by helping client call to schedule an outpatient counseling appointment. Therapist used the therapeutic garden to help client practice mindfulness and grounding strategies. Therapist used strengths perspective to empower client on progress. Client Response:: Client responded well to session, open to practicing grounding techniques in the therapeutic garden. Client reported she had a good weekend, better than last week for sure. Client stated learning about trauma triggers helped client process and overcome what happened to her last weekend. Client reported she used the strategies discussed in last individual session this weekend to help client overcome anxiety and attend a cutter [employer]. Client expressed I mentally prepared myself and gave myself lots of options. Client and therapist discussed client's progress as client is retirement through the IOP program. Client reported belief that she has progressed, even though client continues to have high expectations of where she should be. Client took the DSM-5 cross-cutting symptom measure survey and saw that her scores have decreased since starting IOP. Client shared she felt proud and excited that she is seeing progress. Client stated she would like to work on promoting mood stability moving forward by making a care kit to help client recognize warning signs, coping skills, and supports that will allow client to overcome future speedbumps. Client would also like to identify more social supports and activities to keep client engaged when she leaves IOP. Client and therapist called [facility] in attempts to establish outpatient counseling. Therapist and client unable to get through to schedule an appointment today, but left a message for [facility] providers. Risks/Concerns:: Client denies suicidal ideation, plan, and intent as of 08/21/17. Progress Toward Goals/Plan:: Client is demonstrating progress towards treatment goals as shown by her reduced overall score of the DSM-5 symptom measure. Client reports an improved mood, reduced anxiety, increased socialization, and use of healthy coping skills. However, client does continue to report mild feelings of depression and feeling down. Client to continue IOP to prevent decompensation and promote further mood stability. Client to follow up with outpatient counseling. Time Stopped:: 13:07
--- NOTE | 2017-08-21 15:02 | BH.MDN_ITS ---
Multi-Disciplinary Note - Note 45-min Individual Time Started:: 12:25 Date: 08/21/17 Purpose of session/treatment goals addressed:: The purpose of this session was to evaluate progress, connect client to outpatient counseling, and establish ongoing therapy goals. Another goal was to review coping skills and discuss discharge. Eye Contact:: Good Motor Activity:: Appropriate Appearance:: Neat Speech:: Appropriate Mood:: Euthymic Affect:: Full Thoughts:: Linear, Logical, No evidence of hallucinations/delusions noted Staff Interventions:: Therapist used open-ended questions and the DSM-5 cross cutting symptom measure to evaluate and alan client's progress. Therapist processed client's progress with client and helped client identify goals moving forward to promote mood stability and maintain gains. Therapist advocated for client by helping client call to schedule an outpatient counseling appointment. Therapist used the therapeutic garden to help client practice mindfulness and grounding strategies. Therapist used strengths perspective to empower client on progress. Client Response:: Client responded well to session, open to practicing grounding techniques in the therapeutic garden. Client reported she had a good weekend, better than last week for sure. Client stated learning about trauma triggers helped client process and overcome what happened to her last weekend. 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 Client expressed I mentally prepared myself and gave myself lots of options. Client and therapist discussed client's progress as client is fci through the IOP program. Client reported belief that she has progressed, even though client continues to have high expectations of where she should be. Client took the DSM-5 cross-cutting symptom measure survey and saw that her scores have decreased since starting IOP. Client shared she felt proud and excited that she is seeing progress. Client stated she would like to work on promoting mood stability moving forward by making a care kit to help client recognize warning signs, coping skills, and supports that will allow client to overcome future speedbumps. Client would also like to identify more social supports and activities to keep client engaged when she leaves IOP. Client and therapist called [facility] in attempts to establish outpatient counseling. Therapist and client unable to get through to schedule an appointment today, but left a message for [facility] providers. Risks/Concerns:: Client denies suicidal ideation, plan, and intent as of . Progress Toward Goals/Plan:: Client is demonstrating progress towards treatment goals as shown by her reduced overall score of the DSM-5 symptom measure. Client reports an improved mood, reduced anxiety, increased socialization, and use of healthy coping skills. However, client does continue to report mild feelings of depression and feeling down. Client to continue IOP to prevent decompensation and promote further mood stability. Client to follow up with outpatient counseling. Time Stopped:: 13:07
--- NOTE | 2017-08-21 15:37 | BH.SGPN_ITS ---
Service Group Progress Note - Session Psychotherapy Session #2 Date Open:: 08/18/17 Time Started:: 10:05 Time Stopped:: 11:05 Targeted Problem #:: 1 Type of Group:: Illness Management - 5 group members Goal of Group:: To increase understanding of resilience and the importance of looking at problems in different ways. Client Response/Progress/Benefit:: Client contributed positively to discussion and listened attentively to others. Client connected with peers comments about having the mindset that something is impossible and that mindset keeps her from trying something new or making a change. Client worked cooperatively with peers to overcome what appeared impossible. Able to connect that ones? mindset can make a difference when it comes to overcoming difficult things. Client connected with importance of trying to have a growth mindset and seeing challenges as opportunities versus challenges as impossible. Client seemed to benefit from learning about fixed and growth mindset. Eye Contact:: Good Motor Activity:: Appropriate Appearance:: Casual Speech:: Appropriate Staff Interventions:: Therapist led an experiential activity that demonstrated the need of supports. Processed activity and led discussion about quote. Therapist led group discussion about importance of social supports. Identified what qualities a positive support person would have. Support was provided through reflective listening and giving feedback. Psychotherapy Session #3 Date Open:: 08/18/17 Time Started:: 11:15 Time Stopped:: 12:10 Targeted Problem #:: 1 Type of Group:: Functional Skills Development - 7 group members Goal of Group:: To identify personal barriers that get in the way of accomplishing tasks and identify internal and external resources to help overcome difficult situations. Client Response/Progress/Benefit:: Client active participant AEB client contributing to discussion and connecting with others comments. Client identified her personal barriers to include: the thought this is taking too long to get better and the desire to fix everything. Client accepted feedback from peer that she is still early in her treatment and it's a positive she sought help quickly. Client worked cooperatively with peers to identify internal and external resources that could be beneficial with overcoming personal obstacles. Client seemed to benefit from increasing repertoire of various internal and external resources. Eye Contact:: Good Motor Activity:: Appropriate Appearance:: Casual Speech:: Appropriate Mood:: Euthymic Affect:: Congruent Thoughts:: Linear, Logical, No evidence of hallucinations/delusions noted Staff Interventions:: Therapist facilitated discussion about resilience and the importance of being resilient in the face of adversity. Therapist led group in an activity that would initially seem impossible to complete, but once group members looked at the problem in a different way they would be able to see alternative solutions. Therapist utilized the activity as a tool to discuss overcoming those situations that seem impossible to get through.
--- NOTE | 2017-08-21 16:58 | BH.SGPN ---
Service Group Progress Note - Session Psychotherapy Session #1 Date Open:: 08/21/17 Time Started:: 09:07 Time Stopped:: 10:18 Targeted Problem #:: 1 Type of Group:: Process - 8 participants Goal of Group:: The goal of today's group was to check-in with client's mood, stressors, and positives, review homework and introduce topic for the day. Client Response/Progress/Benefit:: Client responded well to session and remained engaged throughout. She discussed feeling more hopeful this week and had been able to identify some small areas of progress over the weekend. CLient indicated that she had been able to learn from the negative experience she had the previous week in which client experienced a trauma trigger and made sure to pay closer attention to her mental health needs this weekend. She shared checking-in with her self on several occasions throughout the weekend which was helpful. Client indicated that weekends continue to be hard due to lack of routine but that she is trying to schedule things ahead of time to provide her with some structure. Client displayed progress in ability to apply self-care and bouindary setting skills during a fundraising event in which she was able to limit time with family to prevent retraumatization. CLient recommended continued IOP to further promote use of healthy distraction and internal coping mechanisms, as well as to prevent decompensation. Eye Contact:: Good Motor Activity:: Appropriate Appearance:: Casual Speech:: Appropriate Mood:: Dysthymic Affect:: Congruent Thoughts:: Linear, Logical, No evidence of hallucinations/delusions noted Staff Interventions:: Therapist used open-ended questions to elicit information about client's current stressors and mood state. Therapist was supportive by using active listening and reflection. Therapist utilized a quote as a tool in introducing the topic of the day.
--- NOTE | 2017-08-22 15:57 | BH.COMM ---
Communication Note - Communication with Client Communication Note: Client called [facility] therapist for emotional support as client reported having a low day. Client unable to distinguish a trigger and shared she has been trying to get over it but nothing has alleviated her depressed emotions. Therapist normalized client's experience and helped client identify coping strategies to improve mood. Therapist gently challenged client's black and white thinking regarding progress as client shared belief I've [facility] however, yesterday client's DSM-5 symptom measure showed client reduced her symptom score by 21 points. Therapist assessed for safety and client denied suicidal ideation, plan, and intent and stated ability to go to ER should she feel unsafe. Client receptive to calling a support person, talking a walk, and coming into IOP tomorrow should her symptoms persist. Client recognized she has overcome these lows before and shared I will get through this, it will get better.
--- NOTE | 2017-08-22 16:05 | BH.COMM_ITS ---
Communication Note - Communication with Client Communication Note: Client called [facility] therapist for emotional support as client reported having a low day. Client unable to distinguish a trigger and shared she has been trying to get over it but nothing has alleviated her depressed emotions. Therapist normalized client's experience and helped client identify coping strategies to improve mood. Therapist gently challenged client's black and white thinking regarding progress as client shared belief I've went back [facility] however, yesterday client's DSM-5 symptom measure showed client reduced her symptom score by 21 points. Therapist assessed for safety and client denied suicidal ideation, plan, and intent and stated ability to go to ER should she feel unsafe. Client receptive to calling a support person, talking a walk, and coming into IOP tomorrow should her symptoms persist. Client recognized she has overcome these lows before and shared ?I will get through this, it will get better.?
--- NOTE | 2017-08-23 14:24 | BH.SGPN ---
Service Group Progress Note - Session Psychotherapy Session #1 Date Open:: 08/23/17 Time Started:: 09:10 Time Stopped:: 10:10 Type of Group:: Process - 7 group members Goal of Group:: The goal of today's group was to check-in with client's mood, stressors, and positives, and review homework. Client Response/Progress/Benefit:: Spoke when prompted. Was quiet for majority of group. Emotion for today is sad. Reports increase in depression and anxiety all day yesterday. States that she was unable to improve mood despite using her skills. Reports that she reached out to support and even calld IOP therapist with little improvement. Denies any suicidal thoughts, plan, or intent. Reports that she would definately tell someone if it got to that point. SHe reports being frustrated because there was no trigger to mood change and she thought she was improving. Group provided support and feedback. Praised for utilizing skills rather than isolating. Regression noted with increase depressive symptoms and negative thoughts yesterday which impacted functioning. Will continue in IOP to maintain safety, stablize mood, prevent furhter decompensation, increase daily functioning. Eye Contact:: Poor Motor Activity:: Appropriate Appearance:: Disheveled Speech:: Soft Mood:: Depressed Affect:: Flat Thoughts:: Linear, Logical, No evidence of hallucinations/delusions noted Staff Interventions:: Therapist used open-ended questions to elicit information about client's current stressors and mood state. Therapist was supportive by using active listening and reflection.
--- NOTE | 2017-08-23 15:28 | BH.SGPN_ITS ---
Service Group Progress Note - Session Psychotherapy Session #2 Date Open:: 08/23/17 - 7 group members Time Started:: 10:25 Time Stopped:: 11:15 Targeted Problem #:: 1 Type of Group:: Illness Management Goal of Group:: To increase understanding of components of a problem, learn strategies to solve a problem and rehearse problem solving skills. Client Response/Progress/Benefit:: Client responded well to session, active participant. Client appeared to connect with the quote sharing, ?it?s like insanity, doing the same thing over and over and thinking something will change. ? Client reported there are different types of problems such as internal, emotional, or practical. Client helped the group identify and process the ABCDEs of problem solving, connecting most with breaking the problem into small steps. Client participated in the activity, progress noted as client challenge her self-doubt and was encouraging to peers. Client reflected on the activity stating, ?when there?s a really hard problem you have to use supports and be open to new ideas.? Client appeared to benefit from learning about the ABCDEs of problems solving and using in the moment coping skills. Progress noted as client reports consistent application of healthy coping skills, but can continue to improve in challenging black and white thinking. Eye Contact:: Fair Motor Activity:: Appropriate Appearance:: Neat Speech:: Appropriate Mood:: Dysthymic Affect:: Constricted Thoughts:: Linear, Logical, No evidence of hallucinations/delusions noted Staff Interventions:: Therapist facilitated group discussion about problems and the underlying components of problems. Therapist educated group about various strategies to solving a problem and provided an example of each. Therapist led group in an experiential activity that required group members to use problem solving skills to work together, rehearsing problem-solving skills. Psychotherapy Session #3 Date Open:: 08/23/17 - 6 group members Time Started:: 11:25 Time Stopped:: 12:20 Targeted Problem #:: 1 Type of Group:: Functional Skills Development Goal of Group:: To identify steps to solving a personal problem and increase awareness to those barriers that impedes the problem solving process. Client Response/Progress/Benefit:: Client responded well to session, active in discussion. Client identified thinking ?things will never change? as a problem she would like to overcome. Client?s goal is to be more content with her progress. Client identified problem-solving strategies including: daily positive self-talk, talking with positive supports, keeps track of the progress she has made, and challenging negative self-talk. Client shared her barriers are low self-confidence, anxiety, and negative thinking. Client appeared to benefit from identifying steps to overcome her current problem of thinking things will never get better. Client to continue IOP to prevent decompensation and reduce negative thinking. Eye Contact:: Good Motor Activity:: Appropriate Appearance:: Neat Speech:: Appropriate Mood:: Euthymic Affect:: Congruent Thoughts:: Linear, Logical, No evidence of hallucinations/delusions noted Staff Interventions:: Therapist provided group members with a worksheet in which the group members were instructed to identify a problem and steps need to take to solve that problem. Then therapist instructed group members to identify those barriers that get in the way of solving the problem. Therapist led the processing of the activity. Therapist provided support by using active listening and providing feedback.
--- NOTE | 2017-08-25 11:07 | BH.SGPN ---
Service Group Progress Note - Session Psychotherapy Session #1 Date Open:: 08/25/17 Time Started:: 09:08 Time Stopped:: 10:18 Targeted Problem #:: 1 Type of Group:: Process - 7 participants Client Response/Progress/Benefit:: Client receptive of session and willing to process current thoughts and frustrations with the group. She discussed doing better today than earlier in the week and shared having a particularly low day on Monday. Client reflected upon feeling increased levels of anxiety on that date and struggling to find a skill that provided her with any relief. She shared attempting to challenge her thoughts and remind herself that she has made it through bad days before but found she continued to struggle. CLient noted that after calling and speaking to her IOP therapist on the phone, she was able to begin more effectively challenging and replacing depressive thoughts. CLient benefitted from being challenged to identify her ability to cope with these diffficult emotions and try various skills as progress. Client continues to struggle with impatience regarding symptom management but is continuing to show progress in this area and is consistently attempting to apply the skills she has been learning. CLient recommended continued IOP to maintain stability and improve client use of thought challenging strategies. Eye Contact:: Fair Motor Activity:: Appropriate Appearance:: Casual Speech:: Appropriate Mood:: Dysthymic Affect:: Flat Thoughts:: Linear, Logical, No evidence of hallucinations/delusions noted Staff Interventions:: Therapist used open-ended questions to elicit information about client's current stressors and mood state. Therapist was supportive by using active listening and reflection.
--- NOTE | 2017-08-25 14:14 | BH.SGPN ---
Service Group Progress Note - Session Psychotherapy Session #2 Date Open:: 08/25/17 Time Started:: 10:30 Time Stopped:: 11:20 Targeted Problem #:: 1 Type of Group:: Illness Management Goal of Group:: To increase understanding of cognitive distortions, identify examples of when have had unhelpful thinking, and increase awareness of the impact cognitive distortions have on mental health. Client Response/Progress/Benefit:: Client responded positively to group as shown by her engagement in discussion and appearing attentively to others. Client connected with many of the distortions discussed throughout the session. Client reported she relates most with catastrophizing and shouds because thinking back that is what she most often falls into in regards to distortions. Client seemed to benefit from increasing awareness of the different cognitive distortions. Eye Contact:: Good Motor Activity:: Appropriate Appearance:: Casual Speech:: Appropriate Mood:: Anxious, Dysthymic Affect:: Constricted Thoughts:: Linear, Logical, No evidence of hallucinations/delusions noted Staff Interventions:: Therapist provided group members with a handout that listed ten cognitive distortions with examples. Therapist facilitated group discussion about cognitive distortions. Therapist led group members in an activity to help them understand the impact cognitive distortions can have on emotions and behavior. Therapist provided support by using active listening and providing feedback. Psychotherapy Session #3 Date Open:: 08/25/17 Time Started:: 11:30 Time Stopped:: 12:20 Targeted Problem #:: 1 Type of Group:: Functional Skills Development Goal of Group:: To identify ways of defeating cognitive distortions and rehearse defeating the identified cognitive distortion. Client Response/Progress/Benefit:: Client contributed to discussion and listened attentively to peers. Client reported she recognizes it's important for her to be more patient with her progress because she can see how her thought I should be better by now results in increased negativity. Client worked cooperatively with small group to identify various distorted thoughts and as a group were able to reframe the thoughts to more rational, positive thoughts. Client seemed to benefit from rehearsing identifying and reframing distorted thoughts. Eye Contact:: Good Motor Activity:: Appropriate Appearance:: Casual Speech:: Appropriate Mood:: Anxious, Dysthymic Affect:: Constricted Thoughts:: Linear, Logical, No evidence of hallucinations/delusions noted Staff Interventions:: Therapist utilized an activity as a tool in helping clients connect the amount of effort one will need to put forth to defeat cognitive distortions. Therapist provided group members with a handout to use as an aid when trying to defeat their unhelpful thinking. Therapist processed the worksheet with group members, helping them reframe the cognitive distortions.
== END 2017-08-26 23:59 ==
LOC: BHIOP 08:49
PROVIDERS: PCP Family Medicine; Visit Provider Psychiatry & Neurology Psychiatry
DX: F43.10 Post-traumatic stress disorder, unspecified (principal); F32.9 Major depressive disorder, single episode, unspecified; Z79.899 Other long term (current) drug therapy
CPT/HCPCS: 90833; 99214; H0035; H2012; H2020; 90834; 90837

== ENCOUNTER 2017-08-28 09:00 | Outpatient (RCR) | payer MEDICAID, SELFPAY ==
--- NOTE | 2017-08-28 11:02 | BH.SGPN ---
Service Group Progress Note - Session Psychotherapy Session #1 Date Open:: 08/28/17 - 5 group members Time Started:: 09:05 Time Stopped:: 10:05 Targeted Problem #:: 1 Type of Group:: Process Goal of Group:: The goal of today's group was to check-in with client's mood, stressors, and positives, and review homework. Client Response/Progress/Benefit:: Client responded well to session, active and providing supportive statements. Client reports feeling optimistic today as she shared I'm finally seeing my progress. Client stated she recognizes that she has improved functioning and increased her ability to cope with stressors since starting IOP. Client shared this weekend was quiet and okay as client did not have a lot planned, but client enjoyed it and did not experience increased mental health symptoms. Client reflected on her progress as in the past no weekend structure exacerbated client's mental health symptoms. Client reported she has been using acceptance to help client get through challenging moments and it has been beneficial. Client stated, I don't have to like it but if I accept it my anxiety goes down a bit. Client appeared to benefit from providing support to peers and reflecting on progress. Client to continue IOP to prevent decompensation and maintain mood stability. Eye Contact:: Good Motor Activity:: Appropriate Appearance:: Casual Speech:: Appropriate Mood:: Euthymic Affect:: Congruent Thoughts:: Linear, Logical, No evidence of hallucinations/delusions noted Staff Interventions:: Therapist used open-ended questions to elicit information about client's current stressors and mood state. Therapist was supportive by using active listening and reflection.
--- NOTE | 2017-08-28 11:04 | BH.MDN ---
Multi-Disciplinary Note - Note 30-min Individual Time Started:: 10:27 Date: 08/28/17 Purpose of session/treatment goals addressed:: The purpose of this session was to create a care plan to help client more effective cope with current and future stressors that contribute to anxiety and depression. Another goal was to discuss aftercare and discharge. Eye Contact:: Good Motor Activity:: Appropriate Appearance:: Casual Speech:: Appropriate Mood:: Euthymic Affect:: Full Thoughts:: Linear, Logical, No evidence of hallucinations/delusions noted Staff Interventions:: Therapist created a care plan to help client more effectively cope with stressors and manage thoughts, behaviors, and emotions when feeling depressed or anxious. Therapist used open-ended questions and active listening to help client complete her care plan. Therapist assisted client in identifying internal and external coping skills that will help client overcome low days. Therapist used strengths perspective to empower client on her progress. Therapist and client discussed discharge and established a tentative discharge date. Therapist gave client homework to create a care plan bag filled with reminders and visuals to reinforce healthy coping skills. Client Response:: Client responded well to session, open to creating a care plan. Client shared she has not yet heard back from [facility], but is hopeful they call her this week to schedule client with her new therapist. Client reported I can finally believe and see the progress. Client has struggled with unrealistic expectations and black and white thinking in regard to progress during her time in the program, but shared she now sees positive changes since her first day in IOP. Client stated, my lows aren't as low and I'm more positive. Client completed a care plan filled with coping skills, supports, and self-talk statements that will help client overcome current and future stressors, warning signs, and triggers. Client completed a care plan for depression, anxiety, and dissociation. Client reported belief the plan will help remind client of all her coping options and not to believe my negative thoughts. Client shared she wants to make a care plan bag and fill it will visuals, affirmations, and reminders to make me remember that it the lows don't last forever. Client receptive to doing this for homework and placing it somewhere in her home she can see daily. Risks/Concerns:: No risks or concerns at this time. Client denies suicidal ideation, plan, and intent as of 7/2/18. Progress Toward Goals/Plan:: Client demonstrating significant progress towards treatment goals as shown by her report of improved mood stability, reduced anxiety and depression, and increased ability to challenge negative self-talk. Client continues to struggle at times with black and white thinking and unrealistic expectations, but has been working to challenge and reframe these thoughts. Client can continue to benefit from IOP to promote gains, establish consistent mood stability, and reinforce healthy coping skills. Client currently working on setting up counseling through [facility]. Client's tentative discharge will be the week of September 11. Time Stopped:: 10:53
--- NOTE | 2017-08-28 11:32 | BH.MDN_ITS ---
Multi-Disciplinary Note - Note 30-min Individual Time Started:: 10:27 Date: 08/28/17 Purpose of session/treatment goals addressed:: The purpose of this session was to create a care plan to help client more effective cope with current and future stressors that contribute to anxiety and depression. Another goal was to discuss aftercare and discharge. Eye Contact:: Good Motor Activity:: Appropriate Appearance:: Casual Speech:: Appropriate Mood:: Euthymic Affect:: Full Thoughts:: Linear, Logical, No evidence of hallucinations/delusions noted Staff Interventions:: Therapist created a care plan to help client more effectively cope with stressors and manage thoughts, behaviors, and emotions when feeling depressed or anxious. Therapist used open-ended questions and active listening to help client complete her care plan. Therapist assisted client in identifying internal and external coping skills that will help client overcome low days. Therapist used strengths perspective to empower client on her progress. Therapist and client discussed discharge and established a tentative discharge date. Therapist gave client homework to create a care plan bag filled with reminders and visuals to reinforce healthy coping skills. Client Response:: Client responded well to session, open to creating a care plan. Client shared she has not yet heard back from [facility], but is hopeful they call her this week to schedule client with her new therapist. Client reported I can finally believe and see the progress. Client has struggled with unrealistic expectations and black and white thinking in regard to progress during her time in the program, but shared she now sees positive changes since her first day in IOP. Client stated, my lows aren't as low and I' m more positive. Client completed a care plan filled with coping skills, supports, and self-talk statements that will help client overcome current and future stressors, warning signs, and triggers. Client completed a care plan for depression, anxiety, and dissociation. Client reported belief the plan will help remind client of all her coping options and not to believe my negative thoughts. Client shared she wants to make a care plan bag and fill it will visuals, affirmations, and reminders to make me remember that it the lows don' t last forever. Client receptive to doing this for homework and placing it somewhere in her home she can see daily. Risks/Concerns:: No risks or concerns at this time. Client denies suicidal ideation, plan, and intent as of 7/2/18. Progress Toward Goals/Plan:: Client demonstrating significant progress towards treatment goals as shown by her report of improved mood stability, reduced anxiety and depression, and increased ability to challenge negative self-talk. Client continues to struggle at times with black and white thinking and unrealistic expectations, but has been working to challenge and reframe these thoughts. Client can continue to benefit from IOP to promote gains, establish consistent mood stability, and reinforce healthy coping skills. Client currently working on setting up counseling through [facility]. Client's tentative discharge will be the week of September 11. Time Stopped:: 10:53
--- NOTE | 2017-08-28 15:36 | BH.SGPN_ITS ---
Service Group Progress Note - Session Psychotherapy Session #3 Date Open:: 08/28/17 Time Started:: 11:13 Time Stopped:: 12:15 Targeted Problem #:: 1 Type of Group:: Functional Skills Development - 5 participants. Goal of Group:: To identify the impact fear of failure has had on the group members lives and identify strategies to overcome fear of failure. Client Response/Progress/Benefit:: Client responded well to session, actively engaged throughout. She did well to engage with discussion covering fear of failure and its individual impacts on each participants life. Client discussed that in the past failure has held her back from reaching out for help from others or challenging use of negative self talk. CLient appeared to benefit from reflecting with the group on potential insights and areas of growth they have discovered from past failures and that it is okay to fail. Client additionally benefited from brainstorming with the group potential strategies to help overcome fear of failing. She stated that challenging her expectations of self and practicing patience may help in better managing setbacks and preventing viewing self as a failure. Recommended continued IOP to prevent decompensation and further promote implementation of thought challenging. Eye Contact:: Good, Poor Motor Activity:: Appropriate Appearance:: Casual Speech:: Appropriate Mood:: Dysthymic Affect:: Congruent - Client nodding and following along however not providing as much inputto discussion as usual baseline. Thoughts:: Linear, Logical, No evidence of hallucinations/delusions noted Staff Interventions:: Therapist provided each group member with a worksheet to complete that asked questions about their experiences with fear of failure. Therapist led the processing of the worksheet, helping client?s connect how fear of failure has impacted them. Therapist provided support by using active listening and providing feedback.
--- NOTE | 2017-08-31 10:10 | BH.SGPN.GN ---
Behaviors/Verbalizations/Mental Status: [Pt eye contact good, casually dressed, motor activity appropriate, speech normal rate and tone, mood euthymic, congruent affect, thoughts linear and intact, no evidence of delusions or hallucinations.] Client Response/Progress/Benefit: [Pt active participant AEB many contributions to discussion and attentively listened to peers. Pt reported she connected with the quote that it is challenging to know when or how to express more intense emotions. Related to others that anger can result in responding in an aggressive manner towards others or displacing anger out on someone not even involved. Pt able to connect impact unregulated emotions can negatively impact ability to communicate effectively. When processing activity client stated she could connect how easily communication can be misconstrued which could potentially result in increased conflict or problems. Client seemed to benefit from connecting importance of being able to regulate emotions. ]
--- NOTE | 2017-08-31 10:19 | BH.SGPN ---
Service Group Progress Note - Session Psychotherapy Session #1 Date Open:: 18 - 4 group members Time Started:: 09:05 Time Stopped:: 10:00 Targeted Problem #:: 1 Type of Group:: Process Goal of Group:: The goal of today's group was to check-in with client's mood, stressors, and positives, review homework and introduce topic for the day. Client Response/Progress/Benefit:: Client responded well to session, providing supportive statements to peers. Client reports feeling a little anxious, but better today as client woke up feeling anxious this morning. Client shared belief her anxiety was triggered this morning because client had a busy day yesterday. Client stated, I've found when I'm really busy the day after I tend to be more anxious. Client shared even though yesterday was busy client enjoyed the event and got to spend time with positive supports. Client reported she plans to set small goals today, stay busy, and be in the moment to help reduce her anxiety. Client reflected on progress and shared with peers that positive self-talk, grounding, and being aware of her warning signs has helped client the most since starting IOP. Client appeared to benefit from providing positive feedback to peers as well as receiving praise for her progress. Client to continue IOP to promote gains and maintain mood stability. Eye Contact:: Good Motor Activity:: Appropriate Appearance:: Neat Speech:: Appropriate Mood:: Euthymic, Anxious Affect:: Congruent Thoughts:: Linear, Logical, No evidence of hallucinations/delusions noted Staff Interventions:: Therapist used open-ended questions to elicit information about client's current stressors and mood state. Therapist was supportive by using active listening and reflection.
--- NOTE | 2017-08-31 11:15 | BH.SGPN.GN ---
Behaviors/Verbalizations/Mental Status: [] Pt eye contact good, casually dressed, motor activity appropriate, speech normal rate and tone, mood euthymic, congruent affect, thoughts linear and intact, no evidence of delusions or hallucinations. Client Response/Progress/Benefit: [] Pt active participant, contributed to discussion and listened attentively to others. Pt could relate to the different zones of alertness, recognizing sometimes she is in the low state of alertness too much. Client able to identify various emotions that would fit in the correct zone of alertness. Client reported when she is in the low state of alertness zone it would be unhelpful if she took a nap because she doesn't tend to get more energy after napping. Client recognized using more active coping skills could be helpful when in lower states of alertness and using more calming tools when in higher states of alertness. Client seemed to benefit from group discussion about which specific coping strategies would be most beneficial based on her emotion.
--- NOTE | 2017-09-01 09:05 | BH.SGPN.GN ---
Behaviors/Verbalizations/Mental Status: [] Pt eye contact good, casually dressed, motor activity appropriate, speech normal rate and tone, mood euthymic, congruent affect, thoughts linear and intact, no evidence of delusions or hallucinations. Client Response/Progress/Benefit: [] Client reported her emotions and moods are still up and down, however client states she is not experiencing a deep depression she was feeling last week. Client reports she is trying to be more patient with herself in regards to her progress because she recognizes believing she should be better now results in increased anxiety. Client reports she is really focusing on starting to accept her emotions versus trying to fight them or push them down. Reported seems to be helping to recognize and defeat her negative thoughts in the moment. Client identified feeling cautiously optimistic because she recognizes there is progress but is concerned it will not be lasting. Client demonstrating progress as evidenced by reporting decreased depressive and anxious symptoms and utilizing healthy coping skills. Client to continue IOP level of care to maintain gains, stabilize moods, and prevent decompensation.
--- NOTE | 2017-09-01 10:15 | BH.SGPN.GN ---
Behaviors/Verbalizations/Mental Status: []Client alert and oriented, good eye contact, motor activity normal, speech within normal limits, dress appropriate, mood euthymic, anxious, affect constricted, logical, linear thoughts, no signs of hallucinations or delusions. Client Response/Progress/Benefit: []Client responded well to session, active participant and contributing to discussion. Client connected with the quote sharing, I dont like to admit it, but its true the right path isnt easy but its worth it. Client defined pitfalls as setbacks or bumps in the road. Client stated negative thinking and not recognizing progress can make a person more vulnerable to pitfalls. Client participated in the activity and processed with peers that communicating with supports, managing emotions, and being aware of pitfalls helped the group avoid pitfalls and accomplish the task. Client appeared to benefit from increasing awareness of pitfalls and how they impact mental health. Progress noted as shown by clients reduced depressive symptoms and increased social engagement. However, client can continue to benefit from IOP to challenge distortions and promote coping skill maintenance.
--- NOTE | 2017-09-01 11:15 | BH.SGPN.GN ---
Behaviors/Verbalizations/Mental Status: []Client alert and oriented, good eye contact, motor activity normal, speech within normal limits, dress appropriate, mood euthymic, affect full, logical, linear thoughts, no signs of hallucinations or delusions. Client Response/Progress/Benefit: []Client responded well to session, active participant and providing healthy coping skills during discussion. Client identified her personal pitfalls as not recognizing progress, black and white thinking, negative self-talk, and thinking I dont have to take my meds anymore Im fine. Client shared her pitfalls have kept client stuck in the past, but she wants to avoid them and keep progressing. Client helped the group identify strategies to prevent pitfalls such as positive self-talk, talking with supports, keeping a progress log, and challenging negative thoughts. Client appeared to benefit from gaining awareness of her personal pitfalls, so client can use coping strategies to avoid and overcome future pitfalls. Client to continue IOP to prevent decompensation and promote maintenance of healthy coping skills to manage anxiety and depression.
--- NOTE | 2017-09-04 09:10 | BH.SGPN.GN ---
Behaviors/Verbalizations/Mental Status: [] Client maintained good eye contact, appropriate motor activity, dress was casual, speech within normal limits. Client mood euthymic and expressed as a little more hopeful. Affect congruent, thoughts linear, logical, in no delusions/hallucinations present. Client Response/Progress/Benefit: [] Client responded well to session and active participant throughout. she discussed having a very busy week which was helpful for her as she does better [id number] when she has a consistent routine and structure. client discussed moments throughout the week in which she wanted to isolate or prevent herself from going to do something that she knew she would enjoy; however, client indicated that she applied thought challenging strategies during those moments and was able to successfully overcome them. She discussed attending several days worth of speakers at [facility] which she had greatly enjoyed and was glad she had convinced herself to leave the house in order to attend them. Client reflected that although she still has days where she feels yucky he is doing better to remind herself that does not mean she is starting back at square one and that progress is a process. Client is displaying progress in her ability to better manage symptoms of both anxiety and depression. Recommended continued IOP in order to treatment concepts as well as maintain stability as client continues to develop skills for managing mental health symptoms.
--- NOTE | 2017-09-04 10:27 | BH.SGPN.GN ---
Behaviors/Verbalizations/Mental Status: []Client alert and oriented, neatly dressed and groomed. Eye contact good. Motor activity appropriate. Speech within normal limits. Affect congruent, mood euthymic. Thoughts linear, logical, no signs of hallucinations or delusions. Client Response/Progress/Benefit: []Client responded well to session, active participant. Client connected with the quote sharing, how you think in stressful situations makes it better or worse. Client helped group identify the physical, mental, behavioral, and emotional impacts of stress. Client reported a little stress is helpful and can increase motivation. However, when stress is ongoing and unmanaged, it can lead to depression, fatigue, and feeling overwhelmed. Client identified current stressors in her life such as procrastination, not having enough to do, finding a job, and negative thinking. Client shared her stress jar is not full, as client has been working on challenging cognitive distortions. Client stated when her stressors are not managed client has thoughts of will this ever get better and she feel overwhelmed. Client appeared to benefit from gaining awareness of her current stressors and how they impact mental health. Client to continue IOP to prevent decompensation and reduce negative thinking.
--- NOTE | 2017-09-04 11:29 | BH.SGPN.GN ---
Behaviors/Verbalizations/Mental Status: []Client alert and oriented, neatly dressed and groomed. Eye contact good. Motor activity appropriate. Speech within normal limits. Affect congruent, mood euthymic, anxious. Thoughts linear, logical, no signs of hallucinations or delusions Client Response/Progress/Benefit: []Client responded well to session, active participant. Client engaged in the group activity and connected it to managing stress sharing, baby steps you cant tackle all the stress at once. Client reported anxiety and some frustration during the activity but used in the moment coping skills to manage emotions. Client helped the group create a list of helpful stress management strategies and identified strategies that would help her deal with stress such as prioritizing, focusing on one stressor at a time, and challenging self-doubt. Client reported of her current stressors, negative thinking and managing emotions are in her control. Client was receptive to learning the four As of coping with stress and appeared to benefit from learning different ways to manage stress. Client seems to be progressing as evidenced by her report of increased use of coping skills and reduced anxiety, but continues to report mild depressive symptoms and black and white thinking. Client can continue to benefit from IOP to increase mood stability.
--- NOTE | 2017-09-04 14:25 | BH.MDN ---
Multi-Disciplinary Note - Note 30-min Individual Time Started:: 12:40 Date: 09/04/17 Purpose of session/treatment goals addressed:: The purpose of this session was to explore client's current stressors, thoughts on discharge, and evaluate progress. Another goal was to establish strategies to prevent setbacks and maintain mood stability. Eye Contact:: Good Motor Activity:: Appropriate Appearance:: Casual Speech:: Appropriate Mood:: Euthymic Affect:: Congruent Thoughts:: Linear, Logical, No evidence of hallucinations/delusions noted Staff Interventions:: Therapist used open-ended and scaling questions to explore client's current stressors, concerns of discharge, and views on progress. Therapist normalized client's anxiety about upcoming discharge and helped client identify strategies that will help promote mood stability after discharge. Therapist discussed aftercare and provided insight on what to expect in outpatient counseling to reduce client's stress. Therapist gave praise on client's progress in [facility]. Client Response:: Client responded well to session, open to meeting with therapist. Client shared her mood has been steady as client reports having a few ups and downs, but not nearly close to what it was like before. Client stated she is proud of her progress, but still believes there is room to improve. Client reported she has been doing well with improving self-talk and using distraction coping skills, but client continues to struggle with reading into my emotions too much which client shares prevents her from enjoying the moment at times. Client and therapist discussed the difference between awareness and obsession regarding emotions and thoughts. Client expressed she wants to get better at accepting her emotions and thoughts, reframing them, and then letting them go rather spend time and energy ruminating. Client and therapist identified strategies to help client improve this including using radical acceptance, writing out positives and keeping them by her bed, and talking with her positive supports when she feels overwhelmed. Client shared feeling anxious about leaving [facility], but could process and normalize her emotions. Client stated she has been getting better at recognizing her progress daily which has been helpful. Client reported having an appointment at [facility] this week and client plans to start volunteering more and going to [employer] after leaving [facility]. Risks/Concerns:: No risks or concerns at this time, client denies suicidal ideation, plan, and intent as of 09/04/17. Progress Toward Goals/Plan:: Client demonstrating progress towards treatment goals as shown by her report of reduced depression and anxiety and overall improved mood. Client shared she would benefit from continued work on managing negative thoughts and preventing setbacks. Client has an appointment with her new outpatient therapist on Monday09/06/17 which client is looking forward to. Client reports feeling somewhat anxious, but ready to discharge next week on 09/14/17. Time Stopped:: 13:02
--- NOTE | 2017-09-04 14:40 | BH.MDN_ITS ---
Multi-Disciplinary Note - Note 30-min Individual Time Started:: 12:40 Date: 09/04/17 Purpose of session/treatment goals addressed:: The purpose of this session was to explore client's current stressors, thoughts on discharge, and evaluate progress. Another goal was to establish strategies to prevent setbacks and maintain mood stability. Eye Contact:: Good Motor Activity:: Appropriate Appearance:: Casual Speech:: Appropriate Mood:: Euthymic Affect:: Congruent Thoughts:: Linear, Logical, No evidence of hallucinations/delusions noted Staff Interventions:: Therapist used open-ended and scaling questions to explore client's current stressors, concerns of discharge, and views on progress. Therapist normalized client's anxiety about upcoming discharge and helped client identify strategies that will help promote mood stability after discharge. Therapist discussed aftercare and provided insight on what to expect in outpatient counseling to reduce client's stress. Therapist gave praise on client's progress in [facility]. Client Response:: Client responded well to session, open to meeting with therapist. Client shared her mood has been steady as client reports having a few ups and downs, but not nearly close to what it was like before. Client stated she is proud of her progress, but still believes there is room to improve. Client reported she has been doing well with improving self-talk and using distraction coping skills, but client continues to struggle with reading into my emotions too much which client shares prevents her from enjoying the moment at times. Client and therapist discussed the difference between awareness and obsession regarding emotions and thoughts. Client expressed she wants to get better at accepting her emotions and thoughts, reframing them, and then letting them go rather spend time and energy ruminating. Client and therapist identified strategies to help client improve this including using radical acceptance, writing out positives and keeping them by her bed, and talking with her positive supports when she feels overwhelmed. Client shared feeling anxious about leaving [facility], but could process and normalize her emotions. Client stated she has been getting better at recognizing her progress daily which has been helpful. Client reported having an appointment at [facility] this week and client plans to start volunteering more and going to [employer] after leaving [facility]. Risks/Concerns:: No risks or concerns at this time, client denies suicidal ideation, plan, and intent as of 09/04/17. Progress Toward Goals/Plan:: Client demonstrating progress towards treatment goals as shown by her report of reduced depression and anxiety and overall improved mood. Client shared she would benefit from continued work on managing negative thoughts and preventing setbacks. Client has an appointment with her new outpatient therapist on Monday09/06/17 which client is looking forward to. Client reports feeling somewhat anxious, but ready to discharge next week on 09/14/17. Time Stopped:: 13:02
--- NOTE | 2017-09-06 08:47 | BH.COMM_ITS ---
Communication Note - Communication with Client Communication Note: Per client request, this therapist faxed client's treatment plan and treatment plan review to [facility] for client's intake appointment today. Client signed a release of information and shared it would make her feel less anxious about the intake appointment if her new therapist had some background information on client.
--- NOTE | 2017-09-07 09:10 | BH.SGPN.GN ---
Behaviors/Verbalizations/Mental Status: [] Eye contact is good. Motor activity is appropriate. Appearance is casual. Speech is appropriate. Mood is euthymic. Affect is full and bright. Thoughts are linear and logical. No melany noted. No evidence of delusions or hallucinations noted Client Response/Progress/Benefit: [] Pt was an active participant in group discussion. Provided appropriate feedback to peers. Emotion for today is calm. Shared that she had the best week ever. Reports that she has been able to manage her symptoms effectively this week. Discussed how helpful this program has been in stabilizing her mood. Admits that she struggles with being patient however is thankful that she has had some extended stability. She completed an intake session with an outpatient counselor which she reported went really well. Finalizing her aftercare planning. Utilizing thought stopping and challenging skills. Progress noted per pt report. States this past week has been first in a significant time in which she was not overwhelmed with her anxiety or depressive symptoms. Hopeful about the future. Benefited from group support and praise. Will continue in IOP to maintain gains and prevent decompensation. Expected d/c next week.
--- NOTE | 2017-09-07 10:05 | BH.SGPN.GN ---
Behaviors/Verbalizations/Mental Status: [Client alert and orient x3. Appropriate motor activity. She maintained good eye contact and appeared to be actively listening throughout. Client appearance was casual and weather appropriate, good grooming and hygiene. Client mood was euthymic, affect congruent with mood. Thoughts linear, logical, and without evidence of delusion or hallucination. ] Client Response/Progress/Benefit: [Client responded well to session and openly provided input and supportive feedback throughout. Client discussed connecting with the quote of the day which discussed setting boundaries even when it is difficult or risks hurting someone's feelings. She shared a personal example in which she has had to set some boundaries while in the program and at times felt worried about hurting the other person's feelings. She shared that reminding herself that her needs are important and that she is not responsible for how someone else feels has been helpful. Client benefited from discussion reviewing the different types of boundary setting and when it may be appropriate to use each. Client asked questions and expressed connecting with the concept of ensuring healthy boundaries are reciprocated. Client displaying progress in her ability to challenge herself to be assertive about mental health needs. Recommended continued IOP to further promote gains made and consistency of skills application as well as prevent decompensation. ] Narrative Note: []
--- NOTE | 2017-09-07 11:12 | BH.SGPN.GN ---
Behaviors/Verbalizations/Mental Status: [Client alert and orient x3. Appropriate Motor activity. Eye contact was consistent. Speech WNL, appropriate rate and tone. Client appearance was casual and appropriate for weather, grooming and hygiene cared for. However, client appearing tired AEB dark circles under eyes. Mood was euthymic, positive and encouraging, and affect full. Thoughts remained linear and logical, no noted delusion or hallucinations.] Client Response/Progress/Benefit: [Client responded positively to session and remained an active participant throughout. She did well to engage in both the activity examining current boundaries and discussion reviewing strategies for setting and maintaining healthy boundaries. Client benefitted from reflecting upon her current boundaries as she was able to identify areas of positive progress since admitting to the IOP program. Client indicated that she is more able to assert healthy boundaries with toxic people and saying no to think she is not comfortable with doing. She discussed ongoing difficulties in maintaining healthy self-care boundaries as client often forgets about her own needs however discussed continuing to work in this area. She displayed progress in her ability to use patience positive self talk when identifying current boundaries and areas of progress. Client recommended continued IOP in order to promote consistent skill application and prevent decompensation.] Narrative Note: []
--- NOTE | 2017-09-08 09:10 | BH.SGPN.GN ---
Behaviors/Verbalizations/Mental Status: [] Eye contact is fair. Motor activity is appropriate. Appearance is casual. Speech is appropriate. Mood is euthymic. Affect is full. Thoughts are linear and logical. No evidence of hallucinations or delusions noted. Client Response/Progress/Benefit: [] Pt was an active participant in group discussion. Provided appropriate feedback to peers. Emotion for today is optimistic. Shared that she continues to feel optimistic about her future. Continues to report that she is managing her emotions. Participating in self-care, using coping skills, using thought-stopping strategies, using daily affirmations, and challenging negative thoughts. Significant progress noted since beinging the program. Benefited from group support and feedback. Will continue in IOP to maintain gains and prevent decompensation Narrative Note: []
--- NOTE | 2017-09-08 10:15 | BH.SGPN.GN ---
Behaviors/Verbalizations/Mental Status: [Client alert and orient x3. Active participant in session. Client maintained consistent eye contact throughout. Client motor activity appropriate. Appearance was comfortable and casual, grooming and hygiene maintained appropriately. Speech remained within normal limits, appropriate rate and tone. Mood was euthymic, affect full, bright - client making jokes and encouraging fellow participants. Thoughts remained linear and logical, void of observable hallucination or delusions.] Client Response/Progress/Benefit: [Client responded well to session and was an active participants throughout. She did well to provide input and opinions to the group discussion, as well as encouraged new participants. Client worked with the group to assess the importance of our response to conflict on mental health and identified that if we are not able to face conflict then we can become depressed or experience low levels of self-esteem. Client benefited from reviewing the various conflict resolution styles and the pro's and con's of each. She indicated connecting most with the accommodating style as she often will go along with what others say to avoid any problems however is displaying progress in her ability to increasingly advocate for her own needs and express personal opinions. Client recommended continued IOP to prevent decompensation and continue to identify and implement depression sx management strategies. Narrative Note: []
--- NOTE | 2017-09-08 11:16 | BH.SGPN.GN ---
Behaviors/Verbalizations/Mental Status: [Client alert and orient x3. She was an active participant and maintained consistent eye contact throughout. Client motor activity normal. Appearance was casual, grooming and hygiene appropriately cared for. Speech remained within normal limits. Mood was euthymic, affect full. Thoughts remained linear and logical, void of observable hallucination or delusions. ] Client Response/Progress/Benefit: [Client responded well to session and was an active participant throughout. She appeared to benefit from the survival game activity in which members were placed in a hypothetical situation that required them to work together to overcome potential conflict and eliminate various items. CLient expressed noticing that she was able to take on a much more competitive or collaborating approach than she had expected as client typically would have just gone along with whatever the group decided. CLient reflected that since beginning IOP program she has observed progress in her ability to advocate for her own needs and set personal boundaries. CLient recommended continued IOP to maintain stability and continue to sustain treatment goal progress before client discharge next week.] Narrative Note: []
--- NOTE | 2017-09-11 09:07 | BH.SGPN.GN ---
Behaviors/Verbalizations/Mental Status: [Client alert and orient x3. She was an active participant, provided encouragement. Maintained consistent eye contact throughout. Client motor activity appropriate. Appearance was casual, grooming and hygiene tended to. Speech within normal limits. Mood was euthymic, expressed as grounded. Affect congruent, full. Thoughts remained linear and logical, no observed hallucination or delusions. Therapist reviewed clients symptom tracker to assess for intensity of mental health symptoms and identify risk for suicide. No signs of suicidal ideation, plan, or intent to date.] Client Response/Progress/Benefit: [Point responded well to session and was actively engaged throughout. She provided input to conversation and actively encouraged and welcomed new participants to the group. Client discussed having an uneventful weekend which normally would have caused her to feel depressed or fall into negative thinking patterns, but said that she has successfully prevented this from occurring. Client indicated that she went into the weekend with mindset of knowing it was going to be unstructured and telling herself that she would be able to positively get through the weekend. Shared spending much time reading and finding quiet things she likes to do. Client benefited from reflecting with fellow participants however she has made since first beginning IOP program and identifying increased ability to manage unstructured environments and challenge negative thinking patterns. Client recommended continued IOP to maintain stability as she completes aftercare planning for discharge scheduled for this .] Narrative Note: []
--- NOTE | 2017-09-11 10:20 | BH.SGPN.GN ---
Behaviors/Verbalizations/Mental Status: [] Pt eye contact good, casually dressed, motor activity appropriate, speech normal rate and tone, mood euthymic, congruent affect, thoughts linear and intact, no evidence of delusions or hallucinations. Client Response/Progress/Benefit: [] Pt engaged and active AEB contributing to discussion and listening to other. Pt shared setting goals gives her a direction and keep her from staying stuck. Pt reported when she doesn't set goals she doesn't do anything because doesn't know where to start. Pt identified a benefit to goal setting is having a sense of purpose and accomplishment. Pt shared she struggles at times with following through on her identified goal, recognizing negative mindset can impact ability to keep trying. Pt seemed to benefit from discussion about SMART goals and rehearsing setting goals in the moment. Narrative Note: []
--- NOTE | 2017-09-11 11:25 | BH.SGPN.GN ---
Behaviors/Verbalizations/Mental Status: [] Pt eye contact good, casually dressed, motor activity appropriate, speech normal rate and tone, mood euthymic, congruent affect, thoughts linear and intact, no evidence of delusions or hallucinations. Client Response/Progress/Benefit: [] Client active and engaged throughout group session as evidenced by contributed to discussion and listened to others. For her goal client reported she like to get back into walking and exercising because she knows in the past it really helps her feel mentally stable and refreshed. Client identified her goal to be walking at least 20 minutes 3-4 times per week. Client shared she will either walk in the morning or in the evenings because 1 of the barriers recently has been the high temperatures outside. Client reported one thing that can help her accomplish the goal is to reflect back on how she used to feel when she was walking on a consistent basis and the benefits that provided her. Client seemed to benefit from setting a goal that will help benefit her mental health. Narrative Note: []
--- NOTE | 2017-09-15 09:09 | BH.SGPN.GN ---
Behaviors/Verbalizations/Mental Status: [Client alert and orient x3. She remained an active and well engaged participant, providing positive feedback and input to the group. Client maintained good eye contact throughout. Motor activity appeared restless - AEB client rubbing hands on legs and shifting in chair multiple times. Appearance was casual and comfortable, grooming and hygiene appropriate. Speech within normal limits. Mood was happy and anxious, expressed as experiencing a lot of different emotions. Affect euthymic, congruent with mood. Thoughts remained linear and logical, with no present hallucinations or delusions. Therapist reviewed clients symptom tracker to assess for intensity of mental health symptoms and identify risk for suicide. No signs of suicidal ideation, plan, or intent to date.] Client Response/Progress/Benefit: [Client positively responded to session and was active in the discussion throughout. She provided support and encouragement to fellow participants and shared that she is feeling a lot of emotions this morning as it is her last day in the IOP program. Client expressed that she is glad to have made so much progress in treatment but is going to miss coming to the program and being around so many supportive people. Client discussed with the group areas in which she feels she has made the most successful strides including challenging negative thoughts and keeping a gratitude log. Client indicated some worry about her ability to maintain gains following discharge and benefitted from reflecting upon potential strategies for success. Recommended continued individual outpatient counseling services following discharge.] Narrative Note: []
--- NOTE | 2017-09-15 10:10 | BH.SGPN.GN ---
Addendum entered and electronically signed by Katie Shanks [facility] 09/18/17 11:56: Start time should be corrected to reflect a start time of: 1015 with an end time of 1110. Original Note: Behaviors/Verbalizations/Mental Status: [] Pt eye contact good, casually dressed, motor activity appropriate, speech normal rate and tone, mood euthymic, congruent affect, thoughts linear and intact, no evidence of delusions or hallucinations. Client Response/Progress/Benefit: []Pt contributed positively to discussion and listened attentively to peers. Pt connected with the quote that growth will not happen by mere chance. Pt reported sometimes it's challenging to see progress and growth, but agreed it takes effort and work in order for progress to happen. Pt identified self-care, looking for positives, and doing more things she enjoys as strategies to help her grow. When processing activity identified importance of communication and listening to others as things that helped the group be successful. Pt seemed to benefit from discussion about importance of putting forth effort to see positive changes. Narrative Note: []
--- NOTE | 2017-09-15 11:20 | BH.SGPN.GN ---
Behaviors/Verbalizations/Mental Status: [] Pt eye contact good, casually dressed, motor activity appropriate, speech normal rate and tone, mood euthymic, congruent affect, thoughts linear and intact, no evidence of delusions or hallucinations. Client Response/Progress/Benefit: [] Client contributed positively discussion and listened attentively to others. Client identified her positive forces to include: Positive supports, self-care, exercise, looking for the positives, positive attitude, and recognizing her growth. Client shared negative forces for herself to include: Lack of communication, lack of confidence, toxic people, and low energy. Client shared currently she feels her positive and negative forces are balanced with her positive forces keeping her grounded and stable. Client recognized important for her to focus on maintaining a positive forces and taking steps to weekend the negative forces in her life that can hold her back. Client noted to the group the progress she has made while in the IOP program given today is her last day. Client seemed benefit from increasing awareness of her positive negative forces as well as thinking about what she can do to maintain her current stability. Client to be discharged from [facility] level of care due to client achieving her treatment goals and no longer meeting medical necessity. Narrative Note: []
--- NOTE | 2017-09-15 11:36 | BH.AFTERPLAN ---
Aftercare Plan - Demographics Treatment End Date:: 09/15/17 Psychiatrist:: Juliet Pineda Psychiatrist Office #:: [id number] [facility] Therapist:: Yvette Aguilar Therapist Phone #:: [phone] - Medications Home Medications: Home Medications Paroxetine HCl [Paxil] 20 mg PO DAILY 07/21/17 - Plan Details Progress/Aftercare Plan Details:: You have shown significant progress with reducing anxiety and depression! You have become more patient with yourself and your mental health treatment which has helped you cope with difficult days and accept progress. You have consistently reported using positive self-talk, thought challenging, distractions, and grounding techniques to help manage anxiety and depression. You made progress with reaching out to supports and have been volunteering on a regular basis. You reported increased self-awareness of warning signs, triggers, and cognitive distortions. You have learned that there will be good days and bad days, but you have better awareness that you can get through them and there will be better days ahead. Strategies for Success:: 1. Challenge those negative thoughts consistently! Recognize when your mind is trying to trick you and cause self-doubt. 2. Use positive self-talk I can get through this, I have before. 3. Use your care plan to keep up with the progress you have made. 4. Acceptance: don't push away thoughts or emotions, take care of them. 5. Set small goals and remember you can do the anxious thing. 6. Talk with your positive supports. 7. Help others, but SELF-CARE!! Don't forget to fill your cup. 8. Keep track of your positives, progress, and give yourself credit each day. 9. Be mindful and use grounding skills such as breathing, 5-senses, gardening, and self-talk. 10. Reframe negative self-talk and challenge unrealistic expectations. - Appointments Appointments/Referrals to Other Services:: 1. Luther castellanos [facility] for outpatient counseling, next appointment 09/20/17 at 2:00pm 2. Dr. Cuenca for medication monitoring and PCP. 3. [facility] for additional social support.
--- NOTE | 2017-09-15 11:54 | BH.IGGP_ITS ---
Aftercare Plan - Demographics Treatment End Date:: 09/15/17 Psychiatrist:: Juliet Pineda Psychiatrist Office #:: [id number] [facility] Therapist:: Yvette Aguilar Therapist Phone #:: [phone] - Medications Home Medications: Home Medications Paroxetine HCl [Paxil] 20 mg PO DAILY 07/21/17 - Plan Details Progress/Aftercare Plan Details:: You have shown significant progress with reducing anxiety and depression! You have become more patient with yourself and your mental health treatment which has helped you cope with difficult days and accept progress. You have consistently reported using positive self-talk, thought challenging, distractions, and grounding techniques to help manage anxiety and depression. You made progress with reaching out to supports and have been volunteering on a regular basis. You reported increased self- awareness of warning signs, triggers, and cognitive distortions. You have learned that there will be good days and bad days, but you have better awareness that you can get through them and there will be better days ahead. Strategies for Success:: 1. Challenge those negative thoughts consistently! Recognize when your mind is trying to trick you and cause self-doubt. 2. Use positive self-talk I can get through this, I have before. 3. Use your care plan to keep up with the progress you have made. 4. Acceptance: don't push away thoughts or emotions, take care of them. 5. Set small goals and remember you can do the anxious thing. 6. Talk with your positive supports. 7. Help others , but SELF-CARE!! Don't forget to fill your cup. 8. Keep track of your positives , progress, and give yourself credit each day. 9. Be mindful and use grounding skills such as breathing, 5-senses, gardening, and self-talk. 10. Reframe negative self-talk and challenge unrealistic expectations. - Appointments Appointments/Referrals to Other Services:: 1. Luther castellanos [facility] for outpatient counseling, next appointment 09/20/17 at 2:00pm 2. Dr. Cuenca for medication monitoring and PCP. 3. [facility] for additional social support.
--- NOTE | 2017-09-15 13:50 | BH.MDN ---
Multi-Disciplinary Note - Note 30-min Individual Time Started:: 12:20 Date: 09/15/17 Purpose of session/treatment goals addressed:: The purpose of this session was to provide closure, evaluate progress, review strategies for success, and discuss aftercare plan. Eye Contact:: Good Motor Activity:: Appropriate Appearance:: Casual Speech:: Appropriate Mood:: Euthymic Affect:: Congruent Thoughts:: Linear, Logical, No evidence of hallucinations/delusions noted Staff Interventions:: Therapist used open-ended questions to explore client's thoughts on personal progress. Therapist reviewed strategies and coping skills with client to promote gains and prevent setbacks. Therapist discussed aftercare plan with client and used strengths-perspective to empower client. Therapist gave client a quote collage for closure and had client complete the [facility] surveys. Client Response:: Client responded well to session, open to meeting with therapist. Client reported she has mixed feelings about leaving, stating my emotions are all over the place, but I know I'm ready. Client shared she recognizes having less dips and bad days as the biggest indicator of progress. Client contributed using positive self-talk, acceptance, and thought challenging to her reduce anxiety and depression. Client and therapist discussed aftercare and strategies to promote maintenance. Client shared her increased patience and self-awareness will help client recognize negative thinking and challenge unrealistic expectations. Post IOP discharge, client shared she plans to meet with her outpatient counselor weekly, volunteer 4 days a week, and hopes to eventually go to [facility] for additional mental health support. Client expressed gratitude for the program and staff. Risks/Concerns:: No risks or concerns to document at this time. Client denies suicidal ideation, plan, and intent as of 09/15/17. Progress Toward Goals/Plan:: Client has accomplished her treatment goals of reducing depression and anxiety as evidenced by her reduction in her DSM-5 cross-cutting symptom score and her self-report of improved mood and coping. Client to discharge from [facility] as she no longer meets the criteria for [facility] level of care. Client to follow up with outpatient provider, Luther, at [facility]. Time Stopped:: 12:50
--- NOTE | 2017-09-15 14:18 | BH.MDN_ITS ---
Multi-Disciplinary Note - Note 30-min Individual Time Started:: 12:20 Date: 09/15/17 Purpose of session/treatment goals addressed:: The purpose of this session was to provide closure, evaluate progress, review strategies for success, and discuss aftercare plan. Eye Contact:: Good Motor Activity:: Appropriate Appearance:: Casual Speech:: Appropriate Mood:: Euthymic Affect:: Congruent Thoughts:: Linear, Logical, No evidence of hallucinations/delusions noted Staff Interventions:: Therapist used open-ended questions to explore client's thoughts on personal progress. Therapist reviewed strategies and coping skills with client to promote gains and prevent setbacks. Therapist discussed aftercare plan with client and used strengths-perspective to empower client. Therapist gave client a quote collage for closure and had client complete the [facility] surveys. Client Response:: Client responded well to session, open to meeting with therapist. Client reported she has mixed feelings about leaving, stating my emotions are all over the place, but I know I'm ready. Client shared she recognizes having less dips and bad days as the biggest indicator of progress. Client contributed using positive self-talk, acceptance, and thought challenging to her reduce anxiety and depression. Client and therapist discussed aftercare and strategies to promote maintenance. Client shared her increased patience and self-awareness will help client recognize negative thinking and challenge unrealistic expectations. 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 Client expressed gratitude for the program and staff. Risks/Concerns:: No risks or concerns to document at this time. Client denies suicidal ideation, plan, and intent as of 09/15/17. Progress Toward Goals/Plan:: Client has accomplished her treatment goals of reducing depression and anxiety as evidenced by her reduction in her DSM-5 cross -cutting symptom score and her self-report of improved mood and coping. Client to discharge from [facility] as she no longer meets the criteria for [facility] level of care. Client to follow up with outpatient provider, Luther, at [facility]. Time Stopped:: 12:50
--- NOTE | 2017-09-15 14:19 | BH.DS_ITS ---
Discharge Summary - Demographics Date of Admission:: 07/21/17 Discharge Date: 09/15/17 Presenting Problems at Admission:: At admission, client reported anxiety and depression since 2010 and has had 3-4 intermittent episodes of anxiety and depression since then. Client?s anxiety recently became worse 3 weeks prior to [facility] admission due to loneliness and recently quitting her job. Client endorsed a depressed mood, anhedonia, decreased energy, and difficulty concentrating. Client also reported decreased appetite with a 5-pound weight loss in the past 3 weeks. Client states having interrupted sleep, averaging 5 hours a night. Client reported ruminative anxiety about multiple issues and experiences somatic symptoms such as heart palpitation, shortness of breath, and dissociative symptoms. Client shared feeling anxious every day for most of the day, especially in the mornings. At admission client reported her symptoms are interfering with her ability to function socially and professionally. Discharge Diagnoses:: generalized anxiety disorder F41.1; PTSD, Depressive disorder unspecified Reason for Discharge:: Client has accomplished her treatment plan goals of reducing anxiety and depression as evidenced by her reduced DSM-5 cross-cutting scores. At admission client scored 3 out of 8 for depression, at discharge client scored 2 out of 8. Client scored 10 out of 12 for anxiety on the DSM-5 at admission, and at discharge scored 5 out of 12. Additionally, at discharge client reported improved mood, increased social activities, and generalization of thought challenging, calming strategies, and healthy coping skills. For these reasons client no longer meets the criteria for [facility] level of care. - Treatment Progress During Treatment & Response: Client demonstrated significant progress with reducing anxiety and depression as evidenced by client?s increased social activity, self-report of reduced intensity of symptoms, reduction of DSM-5 cross -cutting scores, and increased mood stability. At discharge client shared increased awareness of warning signs and triggers as well as implementation of healthy coping skills. Client has shown progress with using various techniques to manage mental health symptoms including thought challenging, acceptance, patience, self-talk, and grounding. Client also demonstrated progress with socialization as shown by client?s increased engagement in protestant, volunteering , and spending time with family and friends. Client appeared to respond well to treatment as shown by her consistent attendance and positive contributions to group and individual sessions throughout her admission in [facility]. Per client?s report, she was consistent with utilizing coping skills learned in group and individual session, which may have contributed to her progress. Client reported belief group helped client feel less alone which helped client feel supported and motivated to make changes. Issues Still to be Addressed:: Client demonstrated progress with reducing depression and anxiety while in IOP but can continue to benefit from ongoing reinforcement of coping skills to promote maintenance. Client can also benefit from continued work with challenging distortions, especially dichotomous thinking, and coping with trauma triggers. Client shared she would like to continue to learn about PTSD and how to prevent setbacks. Client stated she plans to take what she learned in IOP to help others in her life and was encouraged by therapist to maintain self-care, boundaries, and assertive communication to avoid caregiver burnout. Discharge Recommendations/Instructions:: Client recommended to follow up with outpatient counseling at [facility]. Client's next appointment is 09/20/17 at 2:00pm with Luther. Client also recommended to follow up with her PCP Dr. Cuenca for medication management and medical care. Client shared she will have an appointment with Dr. Cuenca within the next month. Lastly, client had shared interest in attending [facility] for social support and was encouraged to follow up with this service. Discharge Handout: Complete Discharge Handout with client on aftercare options and continuity of care.
== END 2017-09-26 23:59 ==
LOC: BHIOP 09:00
PROVIDERS: PCP Family Medicine; Visit Provider Psychiatry & Neurology Psychiatry
DX: F41.1 Generalized anxiety disorder (principal); F43.10 Post-traumatic stress disorder, unspecified; F32.9 Major depressive disorder, single episode, unspecified
CPT/HCPCS: H0035; H2020; 90832

== ENCOUNTER → 2024-10-22 | Outpatient (CLI) | payer MEDICAID, SELFPAY ==
[2024-10-22 18:01] LABS: Hematocrit 43.1 % (37-47); Hemoglobin 14.8 g/dL (12.0-15.0); Immature Granulocytes Count 0.020 X10^3/uL (0.0-0.0); Mean Corp Hgb Conc 34.3 g/dL (32-36); Mean Corpuscular Volume 85.3 fL (81-99); Mean Platelet Vol. 10.5 fl (6.2-12.0); NRBC Flagged by Analyzer 0 % (0-5); Platelet Count 235 K/mm3 (150-450); RBC Distribution Width CV 13.1 % (11.6-14.6); RBC Distribution Width SD 40.5 fl (35.1-43.9); Red Blood Count 5.05 M/mm3 (4.2-5.4); White Blood Count 6.7 K/mm3 (4.4-11.0)
[2024-10-22 18:27] LABS: AST(SGOT) 19 U/L (<=31); Alanine Aminotransfer ALT/SGPT 29 U/L (<=34); Albumin, Serum 4.4 g/dL (3.4-4.8); Alkaline Phosphatase 79 U/L (35-104); Anion Gap 10 (5-15); BUN 12 mg/dL (4-19); BUN/Creat Ratio 21.4 RATIO (10-20); Calcium,Total 9.6 mg/dL (7.6-11.0); Carbon Dioxide 22.2 mmol/L (21.0-32.0); Chloride 107 mmol/L (98-108); Globulin 2.0 g/dL (2.2-4.2); Glucose 89 mg/dL (70-99); Potassium 3.7 mmol/L (3.3-5.1)
== END | disposition home or self-care (01) ==
LOC: BFHLAB 14:29
PROVIDERS: PCP Family Medicine; Visit Provider Family Medicine
DX: R53.83 Other fatigue (principal)
CPT/HCPCS: 36415; 80053; 84443; 85025